=== PATIENT | male | born 1945 | race Caucasian/White ===

== ENCOUNTER 2017-09-09 14:59 | Emergency (ER) | payer OTHER ==
[~2017-09-09] VITALS: Ht 177.8 cm; Wt 107.4 kg
[2017-09-09 15:11] VITALS: TEMP 36.7; Ht 177.8 cm; Wt 107.4 kg
--- NOTE | 2017-09-09 15:28 | EMERGENCY ROOM VISIT NOTE ---
History Report prepared by Brie: Rochelle Linton Under the Supervision of: Dr. Herbert Person M.D. First contact with patient: 15:12 Chief Complaint: CARDIAC ASSESSMENT Stated Complaint: IRREGULAR HEART BEAT History of Present Illness The patient is a 72 year old male who presents to the Emergency Room with complaints of persistent Afib. The patient went to his PCP for a check-up today and they did an EKG and noticed he was in Afib. They don't know how long this has been happening because the patient does not feel it. The patient denies chest pain, racing or skipping heartbeat, or shortness of breath. 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 He notes he was on Coumadin for a blood clot in his leg. He recently came off Coumadin in April. The swelling in his legs had gone down since his last cortisone shot. Source of History: patient Onset: uncertain Position: other (irregular heart beat) Timing: other (persistent) Associated Symptoms: No chest pain, No SOB Note: Denies feeling a racing or skipping heart beat. Review of Systems See HPI for pertinent positives & negatives. A total of 10 systems reviewed and were otherwise negative. Past Medical & Surgical Hypertension, blood clots in left leg. Old medical records were reviewed. Nurse's notes were reviewed and I agree with. Family History Diabetes mellitus FH: heart disease FHx: cancer Hypertension Social History Drug Use: none Current/Historical Medications Scheduled Ascorbic Acid (Vitamin C), 1,000 MG PO QAM Aspirin (Aspirin Ec), 81 MG PO QAM Atorvastatin (Lipitor), 10 MG PO QAM Felodipine (Felodipine ER), 5 MG PO QAM Fish Oil (Clayton-3), 1 CAP PO QAM Lisinopril/Hctz (Zestoretic 20MG/12.5MG), 1 TAB PO QAM Multiple Vitamin (Multivitamin), 1 TAB PO QAM Allergies Coded Allergies: No Known Allergies (Unverified , 09/09/17) Physical Exam Vital Signs Date Time Temp Pulse Resp B/P (MAP) Pulse Ox O2 Delivery O2 Flow Rate FiO2 09/09/17 17:50 75 17 135/96 97 09/09/17 17:05 83 09/09/17 15:58 95 Room Air 09/09/17 15:57 84 16 121/79 95 Room Air 09/09/17 15:25 89 09/09/17 15:11 36.7 92 20 123/82 96 Room Air Physical Exam General: Non-ill appearing middle aged male in no acute distress. No complaints at present. HEENT: Normal cephalic atraumatic. Pupils are equal round and reactive to light. Extraocular movements are intact. Oropharynx is pink with moist mucous membranes. No swelling of the mouth lips or tongue. Neck: Supple with a midline trachea. No meningeal signs or stiffness, no JVD or bruits. No Stridor. Chest: Clear to auscultation bilaterally. No wheezes or rhonchi. No increased work of breathing. Heart: Irregularly irregular. Non-tachycardic Abdomen: Soft nontender, nondistended without rebound guarding or rigidity. Extremities: lower extremity bilateral compression hose without significant pain or edema. Spine/Back. Non tender to palpation. No CVA tenderness Skin: Good turgor without rashes. Neurologic exam: Cranial nerves two through 12 are intact. Motor and sensation are intact and symmetrical throughout. Medical Decision & Procedures ER Provider Diagnostic Interpretation: Radiology results as stated below per my review and radiologist interpretation: SINGLE VIEW CHEST CLINICAL HISTORY: Atypical chest pain. FINDINGS: An AP, portable, upright chest radiograph is obtained. No prior studies are available for comparison at the time of dictation. The examination is degraded by portable technique and patient rotation. The heart is enlarged. The pulmonary vasculature is noncongested. Moderate interstitial thickening is nonspecific and likely chronic. No airspace consolidation or pleural effusion is identified. No pneumothorax is seen. The skeletal structures are osteopenic. The bony thorax is grossly intact. IMPRESSION: Cardiomegaly with no acute cardiopulmonary abnormality. Electronically signed by: Justyn Patel M.D. 09/09/2017 3:37 PM Dictated Date/Time: 09/09/2017 3:36 PM Laboratory Results 09/09/17 15:30 Red Blood Count 5.20, Mean Corpuscular Volume 90.8, Mean Corpuscular Hemoglobin 32.3, Mean Corpuscular Hemoglobin Concent 35.6, Mean Platelet Volume 9.6, Neutrophils (%) (Auto) 60.2, Lymphocytes (%) (Auto) 30.8, Monocytes (%) (Auto) 7.6, Eosinophils (%) (Auto) 1.2, Basophils (%) (Auto) 0.1, Neutrophils # (Auto) 4.13, Lymphocytes # (Auto) 2.11, Monocytes # (Auto) 0.52, Eosinophils # (Auto) 0.08, Basophils # (Auto) 0.01 09/09/17 15:30 Test 09/09/17 15:30 White Blood Count 6.86 K/uL (4.8-10.8) Red Blood Count 5.20 M/uL (4.7-6.1) Hemoglobin 16.8 g/dL (14.0-18.0) Hematocrit 47.2 % (42-52) Mean Corpuscular Volume 90.8 fL (80-100) Mean Corpuscular Hemoglobin 32.3 pg (25-34) Mean Corpuscular Hemoglobin Concent 35.6 g/dl (32-36) Platelet Count 186 K/uL (130-400) Mean Platelet Volume 9.6 fL (7.4-10.4) Neutrophils (%) (Auto) 60.2 % Lymphocytes (%) (Auto) 30.8 % Monocytes (%) (Auto) 7.6 % Eosinophils (%) (Auto) 1.2 % Basophils (%) (Auto) 0.1 % Neutrophils # (Auto) 4.13 K/uL (1.4-6.5) Lymphocytes # (Auto) 2.11 K/uL (1.2-3.4) Monocytes # (Auto) 0.52 K/uL (0.11-0.59) Eosinophils # (Auto) 0.08 K/uL (0-0.5) Basophils # (Auto) 0.01 K/uL (0-0.2) RDW Standard Deviation 44.1 fL (36.4-46.3) RDW Coefficient of Variation 13.3 % (11.5-14.5) Immature Granulocyte % (Auto) 0.1 % Immature Granulocyte # (Auto) 0.01 K/uL (0.00-0.02) Prothrombin Time 12.5 SECONDS (9.0-12.0) Prothromb Time International Ratio 1.2 (0.9-1.1) Activated Partial Thromboplast Time 23.0 SECONDS (21.0-31.0) Partial Thromboplastin Ratio 0.9 Anion Gap 6.0 mmol/L (3-11) Est Creatinine Clear Calc Drug Dose 69.8 ml/min Estimated GFR () 73.0 Estimated GFR (Non- 63.0 BUN/Creatinine Ratio 15.1 (10-20) Calcium Level 9.2 mg/dl (8.5-10.1) Total Bilirubin 1.1 mg/dl (0.2-1) Direct Bilirubin 0.3 mg/dl (0-0.2) Aspartate Amino Transf (AST/SGOT) 38 U/L (15-37) Alanine Aminotransferase (ALT/SGPT) 68 U/L (12-78) Alkaline Phosphatase 93 U/L (45-117) Total Creatine Kinase 231 U/L (39-308) Creatine Kinase MB 2.7 ng/ml (0.5-3.6) Creatine Kinase MB Ratio 1.2 (0-3.0) Troponin I < 0.015 ng/ml (0-0.045) Total Protein 7.9 gm/dl (6.4-8.2) Albumin 4.1 gm/dl (3.4-5.0) Lipase 106 U/L (73-393) Thyroid Stimulating Hormone (TSH) 1.160 uIu/ml (0.300-4.500) Laboratory studies as stated above per my review. ECG Per My Interpretation Indication: other (irregular heart beat) Rate (beats per minute): 83 Rhythm: atrial fibrillation Findings: no acute ischemic change Comparison ECG Date: compared to EKG done in [facility] earlier today Change: no significant change ED Course 1512: Past medical records reviewed. The patient was evaluated in room A11B, and a complete history and physical examination were performed. 1555: I reevaluated the patient and he is resting comfortably. 1705: I reevaluated the patient and he is asymptomatic. 1735: Upon reevaluation, the patient is resting comfortably. I discussed the results and treatment plan with him. He verbalized agreement of the treatment plan. The patient is ready for discharge. Medical Decision Differentials include, but are not limited to; Afib, cardiac disease, valvular heart disease, thyroid disease, electrolyte or metabolic abnormality. This patient comes in as described above. He was placed in room A 11. Sent over from his doctor's office after it was noted that he was in rate controlled atrial fibrillation. He was there just for a checkup and has been completely asymptomatic. He does not feel his heart beating irregularly. He has had no palpitations shortness of breath or chest pain lately. He has no thyroid disease, lung disease, or valvular heart disease known. He looks well on exam and is stable vital signs. Her EKG here shows no ischemic changes and it is rate controlled and I also reviewed the EKG from the office. IV access established multiple blood testing was obtained. He was reassessed frequently. There are elevation of his cardiac enzymes. He has no acute electrolyte or metabolic abnormalities. Chest x-ray is unremarkable as there is no evidence of acute CHF. There is no evidence of thyroid disease. I did discuss the case with Dr. Lew and he will have his office follow-up with the patient tomorrow and get him in for some anticoagulation likely at the anticoagulation clinic. The patient is scheduled to have his knee injected tomorrow at 8:00 which I told him after discussing it with Dr. Lew, who agrees that the patient can still have this done and they can start him on anticoagulation later in the afternoon and have cardiology follow-up. the patient is happy with this plan and again is asymptomatic and was discharged home with close follow-up with cardiology Medication Reconcilliation Current Medication List: was personally reviewed by me Blood Pressure Screening Patient's blood pressure: Normal blood pressure Impression Primary Impression: New onset atrial fibrillation Scribe Attestation The scribe's documentation has been prepared under my direction and personally reviewed by me in its entirety. I confirm that the note above accurately reflects all work, treatment, procedures, and medical decision making performed by me. Departure Information Dispostion Home / Self-Care Referrals No Doctor, Assigned (PCP) Patient Instructions [facility] Additional Instructions Rest. Drink plenty of fluids. Return if: Chest pain, shortness of breath, heart racing, lightheadedness or dizziness, feeling of passing out, any new problems or concerns Dr. Lew's office will call you tomorrow and arrange for you to be started on anticoagulation and arrange for further follow
--- NOTE | 2017-09-09 15:38 | DIAGNOSTIC IMAGING REPORT ---
SINGLE VIEW CHEST CLINICAL HISTORY: Atypical chest pain. FINDINGS: An AP, portable, upright chest radiograph is obtained. No prior studies are available for comparison at the time of dictation. The examination is degraded by portable technique and patient rotation. The heart is enlarged. The pulmonary vasculature is noncongested. Moderate interstitial thickening is nonspecific and likely chronic. No airspace consolidation or pleural effusion is identified. No pneumothorax is seen. The skeletal structures are osteopenic. The bony thorax is grossly intact. IMPRESSION: Cardiomegaly with no acute cardiopulmonary abnormality. Electronically signed by: Justyn Patel M.D. 09/09/2017 3:37 PM Dictated Date/Time: 09/09/2017 3:36 PM
[2017-09-09 15:40] LABS: BASO % 0.1 %; BASO ABS # 0.01 K/uL (0-0.2); EOS % 1.2 %; EOS ABS # 0.08 K/uL (0-0.5); HEMATOCRIT 47.2 % (42-52); HEMOGLOBIN 16.8 g/dL (14.0-18.0); IG# 0.01 K/uL (0.00-0.02); LYMPH % 30.8 %; LYMPH ABS # 2.11 K/uL (1.2-3.4); MEAN CELL VOLUME 90.8 fL (80-100); MEAN CORPUSCULAR HEMOGLOBIN 32.3 pg (25-34); MEAN CORPUSCULAR HGB CONC 35.6 g/dl (32-36); MEAN PLATELET VOLUME 9.6 fL (7.4-10.4); MONO % 7.6 %; MONO ABS # 0.52 K/uL (0.11-0.59); NEUT % 60.2 %; NEUT ABS # 4.13 K/uL (1.4-6.5); PLATELET COUNT 186 K/uL (130-400); RED CELL DISTRIBUTION WIDTH CV 13.3 % (11.5-14.5); RED CELL DISTRIBUTION WIDTH SD 44.1 fL (36.4-46.3); WHITE BLOOD COUNT 6.86 K/uL (4.8-10.8)
[2017-09-09] MEDS ORDERED: LISI-787 PO (15:42)
[2017-09-09] MEDS ORDERED: ASPI81TA28 PO (15:42)
[2017-09-09] MEDS ORDERED: ASCO10003 PO (15:42)
[2017-09-09] MEDS ORDERED: OMEG10007 PO (15:42)
[2017-09-09] MEDS ORDERED: PLN5 PO (15:42)
[2017-09-09] MEDS ORDERED: MULTTAB58 PO (15:42)
[2017-09-09] MEDS ORDERED: ATOR10TA82 PO (15:43)
[2017-09-09 15:52] LABS: INR 1.2 (0.9-1.1)
[2017-09-09 16:01] LABS: CALCIUM 9.2 mg/dl (8.5-10.1); CREATININE 1.14 mg/dl (0.60-1.40); POTASSIUM 3.7 mmol/L (3.5-5.1)
[2017-09-09 16:14] LABS: ALBUMIN 4.1 gm/dl (3.4-5.0); ALKALINE PHOSPHATASE 93 U/L (45-117); ALT/SGPT 68 U/L (12-78); AST/SGOT 38 U/L (15-37); CKMB 2.7 ng/ml (0.5-3.6); LIPASE 106 U/L (73-393); TOTAL PROTEIN 7.9 gm/dl (6.4-8.2)
[2017-09-09 17:50] VITALS: BP 135/96; PULSE 75; O2SAT 97
== END 2017-09-09 17:52 | disposition home or self-care (01) ==
LOC: C.EDB 15:02 → C.EDA 17:52
DX: I48.91 Unspecified atrial fibrillation (principal); R79.89 Other specified abnormal findings of blood chemistry; I10 Essential (primary) hypertension; Z79.82 Long term (current) use of aspirin

== ENCOUNTER 2022-07-07 12:16 | Inpatient (IN) ==
[2022-07-07] MEDS ORDERED: SODIUM CHLORIDE 0.9% 1000ML 1,000 ML IV STA (12:34)
[2022-07-07] MEDS ORDERED: methylPREDNISolone 125 MG/2 ML VIAL IV STA (12:34)
[2022-07-07] MEDS ORDERED: ALBUT/IPRATROP 3MG/0.5MG NEB 3 ML VIAL NEB STA (12:34)
[2022-07-07] MEDS ORDERED: SODIUM CHLORIDE 0.65% NA SOLN 45 ML (OCEAN) ONE (12:34)
[2022-07-07] MEDS ORDERED: guaiFENesin 600 MG TABCR PO STA (12:34)
[2022-07-07 12:55] LABS: Hematocrit (blood only) 52.6 % (42.0-52.0); Hemoglobin 18.8 g/dl (14.0-18.0); Mean Corpuscular Hemoglobin 32.6 pg (25.0-34.0); Mean Corpuscular Hgb Conc 35.7 g/dL (32.0-36.0); Mean Corpuscular Volume 91.3 fL (80.0-100.0); Mean Platelet Volume 10.4 fL (9.4-12.4); Platelet Count 141 K/uL (130-400); RDW Coefficient of Variation 12.1 % (11.5-14.5); RDW Standard Deviation 40.8 fL (36.4-46.3); Red Blood Count 5.76 M/uL (4.70-6.10); White Blood Count 4.62 K/ul (4.8-10.8)
[2022-07-07 13:10] LABS: Albumin Globulin Ratio 1.1 (0.9-2); Albumin Level 4.4 gm/dl (3.4-5.0); BUN Creatinine Ratio 14.8 (10-20); Bilirubin,Total 1.7 mg/dl (0.2-1.0); Calcium 9.7 mg/dl (8.5-10.1); Creatinine Clr Calc Pharmacy 41.2 ml/min; Est GFR (Non-African American) 34.6 ml/min; Magnesium 1.9 mg/dl (1.7-2.4); Potassium 3.7 mmol/L (3.5-5.1); Total Protein 8.4 gm/dl (6.0-8.3)
[2022-07-07 13:14] LABS: Troponin I High Sensitivity 30.5 pg/ml (0-20)
[2022-07-07 13:32] LABS: Basophils # (auto) 0.01 K/uL (0-0.2); Basophils % (auto) 0.2 %; Eosinophils # (auto) 0.04 K/uL (0-0.50); Eosinophils % (auto) 0.9 %; Immature Granulocytes # (auto) 0.02 K/uL (0.01-0.20); Immature Granulocytes % (auto) 0.4 %; Lymphocytes # (auto) 1.27 K/uL (1.2-3.4); Lymphocytes % (auto) 27.5 %; Monocytes # (auto) 0.56 K/uL (0.11-0.59); Monocytes % (auto) 12.1 %; Neutrophils # (auto) 2.72 K/uL (1.40-6.50); Neutrophils % (auto) 58.9 %
--- NOTE | 2022-07-07 13:33 | XRay Report ---
XR chest 1V portable HISTORY: Cough. dizziness COMPARISON: Chest 09/09/2017. FINDINGS: No pneumothorax. No pleural effusions. The cardiac silhouette remains mildly enlarged. No f ocal lung consolidations to suggest pneumonia. No evidence for pulmonary edema. Degenerative changes within the shoulders again noted. IMPRESSION: Stable mild cardiomegaly. Otherwise, no acute process within the chest. ACT 112: Negative or not required by law. Electronically signed by: Fede Lozada M.D. 07/07/2022 1:32 PM
--- NOTE | 2022-07-07 14:04 | CT Scan Report ---
CT SCAN OF THE ABDOMEN AND PELVIS WITHOUT IV CONTRAST CLINICAL HISTORY: Hypotension. Acute renal insufficiency. COMPARISON STUDY: No priors. TECHNIQUE: CT scan of the abdomen and pelvis is performed from the lung bases to the proximal femora. Images are reviewed in the axial, sagittal, and coronal planes. IV contrast was not administered for this examination. A dose lowering technique was utilized adhering to the principles of ALARA. CT DOSE: 1202.63 mGy.cm FINDINGS: Lung bases: The heart is enlarged and without pericardial effusion. There are coronary artery calcifi cations. There is a small hiatal hernia. Patchy groundglass consolidation is seen throughout the righ t lower lobe. The left lung base is clear. No pleural effusion is identified. Liver: The unenhanced liver is top normal in size measuring 17.5 cm in length. The liver demonstrates diffusely diminished attenuation indicating severe steatosis. Fatty sparing is seen adjacent to the gallbladder fossa. There is no intrahepatic biliary ductal dilatation. Gallbladder: Unremarkable. Spleen: Normal in size and attenuation. Pancreas: Unremarkable. Adrenal glands: Unremarkable. Kidneys: The unenhanced kidneys are normal in size and without hydronephrosis. There are at least 2 n onobstructing right renal calculi which measure up to 3 mm. A 5 mm nonobstructing calculus is seen in the left kidney. No ureteral stone is identified. A 1.8 cm cyst is noted on the left. A circumaortic left renal vein is incidentally noted. Abdominal vasculature: The abdominal aorta is normal in course and caliber noting moderate to advance d atherosclerotic calcification. Bowel: There is rectosigmoid fecal retention and moderate constipation. No bowel obstruction is seen. There is [id number] colonic diverticulosis without CT evidence of acute diverticulitis. The ap pendix is well-visualized and normal. Peritoneum: There is no intraperitoneal free air or abdominal ascites. There is a fat-containing umbi lical hernia. Lymphadenopathy: None. Pelvic viscera: The prostate gland is enlarged and heterogeneous noting median lobe hypertrophy. The bladder wall is thickened and trabeculated indicating chronic outlet obstruction. There are bilateral fat-containing inguinal hernias. Skeletal structures: The skeletal structures are osteopenic. No lytic or blastic lesions are seen. Th ere is mild to moderate lumbosacral spondylosis. Degenerative change is also seen in the sacroiliac j oints and pubic symphysis. IMPRESSION: 1. Patchy ground glass consolidation is seen in the right lower lobe. Correlate clinically for eviden ce of an infectious/inflammatory pneumonitis. 2. No acute infectious or inflammatory findings are identified in the abdomen or pelvis. 3. Bilateral nephrolithiasis. 4. Severe hepatic steatosis. 5. Prostatomegaly with evidence of chronic bladder outlet obstruction. 6. Colonic diverticulosis without CT evidence of acute diverticulitis. 7. Additional findings as above. ACT 112: Negative or not required by law. Electronically signed by: Justyn Patel M.D. 07/07/2022 2:02 PM
[2022-07-07 14:27] LABS: INR 1.7 (0.9-1.1); Prothrombin Time 17.7 Seconds (9.0-12.0)
[2022-07-07 14:33] LABS: Adenovirus PCR Not Detected (NotDetected); Bordetella parapertussis PCR Not Detected (NotDetected); Bordetella pertussis PCR Not Detected (NotDetected); Chlamydia pneumoniae PCR Not Detected (NotDetected); Coronavirus 229E PCR Not Detected (NotDetected); Coronavirus CoV-2 (COVID19)PCR Not Detected (NotDetected); Coronavirus HKU1 PCR Not Detected (NotDetected); Coronavirus NL63 PCR Not Detected (NotDetected); Coronavirus OC43PCR Not Detected (NotDetected); Human Metapneumovirus PCR Not Detected (NotDetected); Influenza A PCR Not Detected (NotDetected); Influenza B PCR Not Detected (NotDetected); Mycoplasma pneumoniae PCR Not Detected (NotDetected); Parainfluenza Virus 1 PCR Not Detected (NotDetected); Parainfluenza Virus 2 PCR Not Detected (NotDetected); Parainfluenza Virus 3 PCR Not Detected (NotDetected); Parainfluenza Virus 4 PCR Not Detected (NotDetected); Respiratory Syncytial VirusPCR Not Detected (NotDetected); Rhinovirus/Enterovirus PCR Not Detected (NotDetected)
[2022-07-07 14:38] LABS: Bilirubin Direct 0.6 mg/dl (0-0.2)
--- NOTE | 2022-07-07 14:44 | Emergency Department Note ---
Impression & Plan RLL pneumonia, Hypotension, ANGIE (acute kidney injury), Persistent atrial fibrillation ED Provider Note NAME: NISA FLORES AGE: 77 SEX: M ARRIVES VIA: Ambulance INFORMANT: Patient ED PROVIDER(S): Papi Negron MD CHIEF COMPLAINT: Dizziness, hypotension, cough, referred. PLAN: Disposition: Admit MEDICAL DECISION MAKING: The patient is a pleasant 77-year-old gentleman with a past medical history of hypertension, hyperlipidemia, atrial fibrillation on warfarin who presents to the emergency department referred from urgent care for evaluation of near syncope and hypotension in the setting of being treated last week for a right ear infection with Augmentin. With subsequent cough and congestion developing since then. He denies chest pain or shortness of breath. He reports decreased oral intake due to upset stomach but denies any vomiting or diarrhea. The patient received 500 cc of IV fluids, 50 of Benadryl and 1 DuoNeb in route prior to arrival with improvement in symptoms and blood pressure. On arrival the patient is fatigued appearing but no acute distress, afebrile with stable vital signs with O2 saturation in the low 90s on room air. He becky ears clinically dry. Lungs with wheezes and rhonchi bilateral lung handy. EKG without overt acute ischemia. CXR negative for acute cardiopulmonary process. WBC 4.6, nonspecific. H/H 18.8/52.6 consistent with the patient's clinically dry appearance. Creatinine 1.8 increased from prior value in 2018. Bicarbonate is within normal limits. LFTs mildly elevated from 2018 but nonspecific. High-sensitivity troponin 30.5, nonspecific. Lipase is not elevated. Respiratory viral panel/BioFire was negative. CT of the abdomen pelvis was performed and did not demonstrate acute intra-abdominal process however does show right basilar consolidation which is suspicious for pneumonia given the patient's respiratory symptoms. Given the patient's acute renal insufficiency and pneumonia reasonable proceed with admission. CTX and doxycycline ordered for treatment following blood cultures. Initially treated with IV fluid hydration with 1L NSS with caution given acute renal insufficiency as well as Solu-Medrol and DuoNeb for bronchospasm. Case was discussed with Negro Doyle PAC with Dr. Lo, Negro hospitalist, who will evaluate the patient for admission. Triage Nursing notes reviewed and agree them. Prior/outside medical records reviewed Vital Signs: reviewed Differential diagnosis: Benign positional vertigo, dehydration, hypovolemia, anemia, tumor, infection, hypoglycemia, electrolyte abnormalities, cardiac sources, intracerebral event, toxicologic, neurologic, as well as other pathologies. ER treatment provided: See below. Diagnostics interpreted by me: ECG: Atrial fibrillation with PVCs, 97 bpm, T wave abnormality, no overt ST elevation, QTc 497, QRS 92. Cardiac Monitoring: An order for continuous cardiac monitoring was placed and demonstrated Atrial fibrillation with PVCs, 97 bpm Laboratory studies: See below Imaging studies: See below Consultation(s): Negro Doyle PAC with Negro Foley hospitalist. HPI: The patient is a pleasant 77-year-old gentleman with a past medical history of hypertension, hyperlipidemia, atrial fibrillation on warfarin who presents emergency department referred from urgent care for evaluation of near syncope and hypotension in the setting of being treated last week for a right ear infection with subsequent cough and congestion developing since then. He denies chest pain or shortness of breath. He reports decreased oral intake due to upset stomach but denies any vomiting or diarrhea. The patient received 500 cc of IV fluids, 50 of Benadryl and 1 DuoNeb in route prior to arrival with improvement in symptoms and blood pressure. ROS: See above HPI for pertinent positives & negatives. A total of 10 systems reviewed and were otherwise negative. VITALS:See Below PHYSICAL EXAMINATION: GENERAL: Awake, alert, ill-appearing, in no distress HENT: Normocephalic, atraumatic. Oropharynx with dry mucous membranes and otherwise unremarkable. EYES: Normal conjunctiva. Sclera non-icteric. NECK: Supple. No nuchal rigidity. FROM. No JVD. RESPIRATORY: Wheezes and rhonchi bilateral lung handy. CARDIAC: Regular rate, normal rhythm. Extremities warm and well perfused. Pulses equal. ABDOMEN: Soft, non-distended. No tenderness to palpation. No rebound or guarding. No masses. RECTAL: Deferred. MUSCULOSKELETAL: Chest examination reveals no tenderness. The back is symmetrical on inspection without obvious abnormality. There is no CVA tenderness to palpation. No joint edema. LOWER EXTREMITIES: Calves are equal size bilaterally and non-tender. No edema. No discoloration. NEURO: Normal sensorium. No sensory or motor deficits noted. SKIN: No rash or jaundice noted. Papi Negron MD Past Med/Surg History Medical History (Updated 07/08/22 @ 02:49 by Papi Negron MD) Aortic root dilatation Dyslipidemia History of adenomatous polyp of colon History of DVT (deep vein thrombosis) Hypertension Left elbow pain Persistent atrial fibrillation Type 2 diabetes mellitus Surgical History History of cataract removal with insertion of prosthetic lens Family History Other Cancer Diabetes Heart disease Stroke Social History Smoking Status: Never smoker Tobacco Type: Smokeless Tobacco (Dip or Chew) Second Hand Exposure: No; Do You Dip or Chew Tobacco: Yes; Tobacco Cessation Education Requested by Patient: No Hx Alcohol Use: Yes Alcohol type: hard liquor Hx Substance Use: No Preferred Language: Turkish [employer] Assistant Required: No Beliefs That Will Affect Care: None Current Living Situation: Spouse Other Information That Helps Us Care for You: No Feels Safe at Home: Yes Safety Concerns: Feels Safe At This Time Allergies Allergies Allergy/AdvReac Type Severity Reaction Status Date / Time No Known Allergies Allergy Verified 07/07/22 15:17 Home Meds Home Medications Medication Instructions Recorded Confirmed warfarin 5 mg tablet 5 mg PO [id number]@1600 11/27/19 07/07/22 amoxicillin 875 mg-potassium 1 tab PO BID 07/07/22 07/07/22 clavulanate 125 mg tablet ascorbic acid (vitamin C) 1,000 mg 1 g PO QAM 07/07/22 07/07/22 tablet (Vitamin C) atorvastatin 10 mg tablet 10 mg PO QAM 07/07/22 07/07/22 ciprofloxacin 0.3 %-dexamethasone 5 drp OTR DIRECTED 07/07/22 07/07/22 0.1 % ear drops,suspension diclofenac sodium 1 % topical gel 4 g topical DIRECTED PRN Pain 07/07/22 07/07/22 felodipine 2.5 mg tablet,extended 2.5 mg PO QAM 07/07/22 07/07/22 release 24 hr lisinopril 20 1 tab PO QAM 07/07/22 07/07/22 mg-hydrochlorothiazide 12.5 mg tablet metformin 500 mg tablet,extended 500 mg PO QAM 07/07/22 07/07/22 release 24 hr metoprolol succinate 50 mg 50 mg PO DAILY 07/07/22 07/07/22 tablet,extended release 24 hr multivitamin 1 tab PO QAM 07/07/22 07/07/22 semaglutide 0.25 mg or 0.5 mg (2 0.25 mg subcut WK 07/07/22 07/07/22 mg/1.5 mL) subcutaneous pen injector (Ozempic) warfarin 5 mg tablet 2.5 mg PO SUTH@1600 07/07/22 07/07/22 Results & Data (ED) Vital Signs Vital Signs - 24 hr 07/07/22 12:25 07/07/22 12:25 07/07/22 12:39 Temperature 36.8 C Temperature Source Oral Pulse Rate 92 H Pulse Rate from SpO2 Sensor Pulse Rhythm Irregular Pulse Strength Normal Respiratory Rate 16 Respiratory Effort / Characteristics Non-Labored Respiratory Depth Normal Respiratory Pattern Regular Blood Pressure 107/79 Blood Pressure Mean 88 Blood Pressure Position Lying Pulse Oximetry 98 92 Oxygen Delivery Method Room Air Room Air Sepsis Recent Fever Within 48 Hours No Sepsis New/Unexplained Change in Mental Status No Sepsis Action Taken by Nursing No Action Required 07/07/22 13:00 07/07/22 13:30 07/07/22 13:52 Temperature Temperature Source Pulse Rate 94 H 89 80 Pulse Rate from SpO2 Sensor 88 75 Pulse Rhythm Pulse Strength Respiratory Rate 26 H 23 27 H Respiratory Effort / Characteristics Respiratory Depth Respiratory Pattern Blood Pressure 112/73 Blood Pressure Mean 86 Blood Pressure Position Pulse Oximetry 93 98 95 Oxygen Delivery Method Sepsis Recent Fever Within 48 Hours Sepsis New/Unexplained Change in Mental Status Sepsis Action Taken by Nursing 07/07/22 14:00 07/07/22 14:10 07/07/22 14:20 Temperature Temperature Source Pulse Rate 81 86 87 Pulse Rate from SpO2 Sensor 91 H 87 81 Pulse Rhythm Pulse Strength Respiratory Rate 29 H 15 32 H Respiratory Effort / Characteristics Respiratory Depth Respiratory Pattern Blood Pressure Blood Pressure Mean Blood Pressure Position Pulse Oximetry 91 94 91 Oxygen Delivery Method Sepsis Recent Fever Within 48 Hours Sepsis New/Unexplained Change in Mental Status Sepsis Action Taken by Nursing 07/07/22 14:30 07/07/22 14:40 07/07/22 14:50 Temperature Temperature Source Pulse Rate 83 82 86 Pulse Rate from SpO2 Sensor 86 86 89 Pulse Rhythm Pulse Strength Respiratory Rate 31 H 27 H 27 H Respiratory Effort / Characteristics Respiratory Depth Respiratory Pattern Blood Pressure Blood Pressure Mean Blood Pressure Position Pulse Oximetry 93 94 91 Oxygen Delivery Method Sepsis Recent Fever Within 48 Hours Sepsis New/Unexplained Change in Mental Status Sepsis Action Taken by Nursing Laboratory Data Attestation: I reviewed the patient's lab results. 07/07/22 12:15 07/07/22 12:15 Lab Results 07/07/22 07/07/22 07/07/22 Range/Units 12:15 12:15 12:15 WBC 4.62 L (4.8-10.8) K/ul RBC 5.76 (4.70-6.10) M/uL Hgb 18.8 H (14.0-18.0) g/dl Hct 52.6 H (42.0-52.0) % MCV 91.3 (80.0-100.0) fL MCH 32.6 (25.0-34.0) pg MCHC 35.7 (32.0-36.0) g/dL RDW Std Deviation 40.8 (36.4-46.3) fL RDW Coeff of Blake 12.1 (11.5-14.5) % Plt Count 141 (130-400) K/uL MPV 10.4 (9.4-12.4) fL Immature Gran % (Auto) 0.4 % Neut % (Auto) 58.9 % Lymph % (Auto) 27.5 % Cross % (Auto) 12.1 % Eos % (Auto) 0.9 % Baso % (Auto) 0.2 % Neut # (Auto) 2.72 (1.40-6.50) K/uL Lymph # (Auto) 1.27 (1.2-3.4) K/uL Cross # (Auto) 0.56 (0.11-0.59) K/uL Eos # (Auto) 0.04 (0-0.50) K/uL Baso # (Auto) 0.01 (0-0.2) K/uL Immature Gran # (Auto) 0.02 (0.01-0.20) K/uL PT 17.7 H (9.0-12.0) Seconds INR 1.7 H (0.9-1.1) Sodium 137 (136-145) mmol/L Potassium 3.7 (3.5-5.1) mmol/L Chloride 97 L (98-107) mmol/L Carbon Dioxide 25 (21-32) mmol/L Anion Gap 15 H (3-11) BUN 27 H (6-23) mg/dl Creatinine 1.82 H (0.6-1.4) mg/dl Est Cr Clr Drug Dosing 41.2 ml/min Est GFR ( Amer) 40.0 ml/min Est GFR (Non-Af Amer) 34.6 ml/min BUN/Creatinine Ratio 14.8 (10-20) Glucose 160 H (70-99(Fasting)) mg/dl Calcium 9.7 (8.5-10.1) mg/dl Phosphorus 4.0 (2.5-4.9) mg/dl Magnesium 1.9 (1.7-2.4) mg/dl Total Bilirubin 1.7 H (0.2-1.0) mg/dl Direct Bilirubin 0.6 H (0-0.2) mg/dl AST 78 H (13-39) U/L ALT 69 H (7-52) U/L Alkaline Phosphatase 95 (34-104) U/L Troponin I High Sens 30.5 H (0-20) pg/ml Total Protein 8.4 H (6.0-8.3) gm/dl Albumin 4.4 (3.4-5.0) gm/dl Globulin 4.0 (2.5-4.0) gm/dl Albumin/Globulin Ratio 1.1 (0.9-2) Lipase 63 (11-82) U/L Procalcitonin (0-0.5) ng/ml Adenovirus (PCR) (NotDetected) B. pertussis DNA (PCR) (NotDetected) B.parapertussis DNA PCR (NotDetected) C. pneumoniae DNA (PCR) (NotDetected) Coronavirus OC43 (PCR) (NotDetected) Coronavirus HKU1 (PCR) (NotDetected) Coronavirus 229E (PCR) (NotDetected) SARS-CoV-2 (PCR) (NotDetected) Coronavirus NL63 (PCR) (NotDetected) Human Metapneumovir PCR (NotDetected) Influenza Type A (PCR) (NotDetected) Influenza Type B (PCR) (NotDetected) M. pneumoniae (PCR) (NotDetected) Parainfluenza 1 (PCR) (NotDetected) Parainfluenza 2 (PCR) (NotDetected) Parainfluenza 3 (PCR) (NotDetected) Parainfluenza 4 (PCR) (NotDetected) RSV (PCR) (NotDetected) Entero/Rhino (PCR) (NotDetected) 07/07/22 07/07/22 07/07/22 Range/Units 12:15 13:15 14:20 WBC (4.8-10.8) K/ul RBC (4.70-6.10) M/uL Hgb (14.0-18.0) g/dl Hct (42.0-52.0) % MCV (80.0-100.0) fL MCH (25.0-34.0) pg MCHC (32.0-36.0) g/dL RDW Std Deviation (36.4-46.3) fL RDW Coeff of Blake (11.5-14.5) % Plt Count (130-400) K/uL MPV (9.4-12.4) fL Immature Gran % (Auto) % Neut % (Auto) % Lymph % (Auto) % Cross % (Auto) % Eos % (Auto) % Baso % (Auto) % Neut # (Auto) (1.40-6.50) K/uL Lymph # (Auto) (1.2-3.4) K/uL Cross # (Auto) (0.11-0.59) K/uL Eos # (Auto) (0-0.50) K/uL Baso # (Auto) (0-0.2) K/uL Immature Gran # (Auto) (0.01-0.20) K/uL PT (9.0-12.0) Seconds INR (0.9-1.1) Sodium (136-145) mmol/L Potassium (3.5-5.1) mmol/L Chloride (98-107) mmol/L Carbon Dioxide (21-32) mmol/L Anion Gap (3-11) BUN (6-23) mg/dl Creatinine (0.6-1.4) mg/dl Est Cr Clr Drug Dosing ml/min Est GFR ( Amer) ml/min Est GFR (Non-Af Amer) ml/min BUN/Creatinine Ratio (10-20) Glucose 141 H (70-99(Fasting)) mg/dl Calcium (8.5-10.1) mg/dl Phosphorus (2.5-4.9) mg/dl Magnesium (1.7-2.4) mg/dl Total Bilirubin (0.2-1.0) mg/dl Direct Bilirubin (0-0.2) mg/dl AST (13-39) U/L ALT (7-52) U/L Alkaline Phosphatase (34-104) U/L Troponin I High Sens (0-20) pg/ml Total Protein (6.0-8.3) gm/dl Albumin (3.4-5.0) gm/dl Globulin (2.5-4.0) gm/dl Albumin/Globulin Ratio (0.9-2) Lipase (11-82) U/L Procalcitonin 0.18 (0-0.5) ng/ml Adenovirus (PCR) Not Detected (NotDetected) B. pertussis DNA (PCR) Not Detected (NotDetected) B.parapertussis DNA PCR Not Detected (NotDetected) C. pneumoniae DNA (PCR) Not Detected (NotDetected) Coronavirus OC43 (PCR) Not Detected (NotDetected) Coronavirus HKU1 (PCR) Not Detected (NotDetected) Coronavirus 229E (PCR) Not Detected (NotDetected) SARS-CoV-2 (PCR) Not Detected (NotDetected) Coronavirus NL63 (PCR) Not Detected (NotDetected) Human Metapneumovir PCR Not Detected (NotDetected) Influenza Type A (PCR) Not Detected (NotDetected) Influenza Type B (PCR) Not Detected (NotDetected) M. pneumoniae (PCR) Not Detected (NotDetected) Parainfluenza 1 (PCR) Not Detected (NotDetected) Parainfluenza 2 (PCR) Not Detected (NotDetected) Parainfluenza 3 (PCR) Not Detected (NotDetected) Parainfluenza 4 (PCR) Not Detected (NotDetected) RSV (PCR) Not Detected (NotDetected) Entero/Rhino (PCR) Not Detected (NotDetected) Administered Medications Ciprofloxacin/Dexamethasone (Cipro 0.3%/Dexamethasone 0.1% Otic Susp 7.5ml) 4 drops OTR BID [facility] Stop: 08/06/22 20:59 Last Admin: 07/07/22 21:45 Dose: 4 drops Documented By: BROOKE Guaifenesin/Codeine Phosphate (Guaifenesin/Codeine 100mg/10mg 5ml Udc) 5 ml PO Q6H PRN PRN Reason: Cough Stop: 08/06/22 17:37 Last Admin: 07/07/22 22:00 Dose: 5 ml Documented By: BROOKE Sodium Chloride (Nss 1000ml) 1,000 mls @ 100 mls/hr IV .Q10H [facility] Stop: 07/08/22 03:39 Last Admin: 07/07/22 18:57 Dose: 100 mls/hr Documented By: YAMIL Insulin Aspart (Insulin Aspart Per Unit) 0 units SC ACHS [facility] Stop: 08/06/22 20:59 Last Admin: 07/07/22 21:42 Dose: 2 units Documented By: BROOKE Co-signed By: BETTY Triamcinolone Acetonide (Triamcinolone Acet 0.1% Cr 15 Gm Tube) 1 appln EXT BID [facility] Stop: 07/14/22 20:59 Last Admin: 07/07/22 21:45 Dose: 1 appln Documented By: BROOKE Discontinued Medications Albuterol (Albut/Ipratrop 3mg/0.5mg Neb 3 Ml Vial) 3 ml NEB NOW STA; Protocol Stop: 07/07/22 12:35 Last Admin: 07/07/22 13:12 Dose: 3 ml Documented By: RUTH Guaifenesin (Guaifenesin 600 Mg Tabcr) 600 mg PO NOW STA Stop: 07/07/22 12:35 Last Admin: 07/07/22 13:11 Dose: 600 mg Documented By: RUHT Sodium Chloride (Nss 1000ml) 1,000 mls @ 999 mls/hr IV .Q1H1M STA Stop: 07/07/22 13:34 Last Infusion: 07/07/22 15:00 Dose: 0 mls/hr Documented By: Admin: 07/07/22 13:12 Dose: 999 mls/hr Documented By: RUTH Ceftriaxone Sodium (Rocephin) 2,000 mg in 70 mls @ 140 mls/hr IV NOW STA Stop: 07/07/22 15:42 Last Infusion: 07/07/22 17:35 Dose: 0 mls/hr Documented By: Admin: 07/07/22 17:02 Dose: 140 mls/hr Documented By: RUTH Doxycycline Hyclate 100 mg/ (Dextrose) 110 mls @ 50 mls/hr IV NOW STA Stop: 07/07/22 17:24 Last Infusion: 07/08/22 00:29 Dose: 0 mls/hr Documented By: Admin: 07/07/22 15:48 Dose: 50 mls/hr Documented By: RUTH Doxycycline Hyclate 100 mg/ (Dextrose) 110 mls @ 50 mls/hr IV Q12H [facility] Stop: 07/14/22 18:14 Last Admin: 07/08/22 01:55 Dose: Not Given Documented By: BROOKE Loratadine (Loratadine 10 Mg Tab) 10 mg PO NOW ONE Stop: 07/07/22 17:41 Last Admin: 07/07/22 21:46 Dose: 10 mg Documented By: BROOKE Methylprednisolone (Methylprednisolone 125 Mg/2 Ml Vial) 125 mg IV NOW STA Stop: 07/07/22 12:35 Last Admin: 07/07/22 13:12 Dose: 125 mg Documented By: RUTH Sodium Chloride (Sodium Chloride 0.65% Na Soln 45 Ml ([place])) 2 sprays NA NOW ONE Stop: 07/07/22 12:35 Last Admin: 07/07/22 13:12 Dose: 2 sprays Documented By: RUTH Imaging Data Radiologist's Impression: Chest X-Ray 07/07/22 12:34 XR chest 1V portable HISTORY: Cough. dizziness COMPARISON: Chest 09/09/2017. FINDINGS: No pneumothorax. No pleural effusions. The cardiac silhouette remains mildly enlarged. No focal lung consolidations to suggest pneumonia. No evidence for pulmonary edema. Degenerative changes within the shoulders again noted. IMPRESSION: Stable mild cardiomegaly. Otherwise, no acute process within the chest. ACT 112: Negative or not required by law. Electronically signed by: Fede Lozada M.D. 07/07/2022 1:32 PM Abdomen/Pelvis CT 07/07/22 13:32 CT SCAN OF THE ABDOMEN AND PELVIS WITHOUT IV CONTRAST CLINICAL HISTORY: Hypotension. Acute renal insufficiency. COMPARISON STUDY: No priors. TECHNIQUE: CT scan of the abdomen and pelvis is performed from the lung bases to the proximal femora. Images are reviewed in the axial, sagittal, and coronal planes. IV contrast was not administered for this examination. A dose lowering technique was utilized adhering to the principles of ALARA. CT DOSE: 1202.63 mGy.cm FINDINGS: Lung bases: The heart is enlarged and without pericardial effusion. There are coronary artery calcifications. There is a small hiatal hernia. Patchy groundglass consolidation is seen throughout the right lower lobe. The left lung base is clear. No pleural effusion is identified. Liver: The unenhanced liver is top normal in size measuring 17.5 cm in length. The liver demonstrates diffusely diminished attenuation indicating severe steatosis. Fatty sparing is seen adjacent to the gallbladder fossa. There is no intrahepatic biliary ductal dilatation. Gallbladder: Unremarkable. Spleen: Normal in size and attenuation. Pancreas: Unremarkable. Adrenal glands: Unremarkable. Kidneys: The unenhanced kidneys are normal in size and without hydronephrosis. There are at least 2 nonobstructing right renal calculi which measure up to 3 mm. A 5 mm nonobstructing calculus is seen in the left kidney. No ureteral stone is identified. A 1.8 cm cyst is noted on the left. A circumaortic left renal vein is incidentally noted. Abdominal vasculature: The abdominal aorta is normal in course and caliber noting moderate to advanced atherosclerotic calcification. Bowel: There is rectosigmoid fecal retention and moderate constipation. No bowel obstruction is seen. There is [id number] colonic diverticulosis without CT evidence of acute diverticulitis. The appendix is well-visualized and normal. Peritoneum: There is no intraperitoneal free air or abdominal ascites. There is a fat-containing umbilical hernia. Lymphadenopathy: None. Pelvic viscera: The prostate gland is enlarged and heterogeneous noting median lobe hypertrophy. The bladder wall is thickened and trabeculated indicating chronic outlet obstruction. There are bilateral fat-containing inguinal hernias. Skeletal structures: The skeletal structures are osteopenic. No lytic or blastic lesions are seen. There is mild to moderate lumbosacral spondylosis. Degenerative change is also seen in the sacroiliac joints and pubic symphysis. IMPRESSION: 1. Patchy ground glass consolidation is seen in the right lower lobe. Correlate clinically for evidence of an infectious/inflammatory pneumonitis. 2. No acute infectious or inflammatory findings are identified in the abdomen or pelvis. 3. Bilateral nephrolithiasis. 4. Severe hepatic steatosis. 5. Prostatomegaly with evidence of chronic bladder outlet obstruction. 6. Colonic diverticulosis without CT evidence of acute diverticulitis. 7. Additional findings as above. ACT 112: Negative or not required by law. Electronically signed by: Justyn Patel M.D. 07/07/2022 2:02 PM Discharge Plan Visit Data Chief Complaint: Hypotension Stated Complaint: HYPOTENSION ED Provider: Papi Negron Discharge Problem: RLL pneumonia, Hypotension, ANIGE (acute kidney injury), Persistent atrial fibrillation Patient Disposition: Admitted As Inpatient Discharge Instructions Interventions: ED Discharge Assessment Last Done: 07/07/22 18:21
--- NOTE | 2022-07-07 15:01 | History & Physical Report ---
Date of Service July 07, 2022 Assessment & Plan (1) Hypotension: (2) RLL pneumonia: (3) Ear infection: (4) History of DVT (deep vein thrombosis): (5) ANGIE (acute kidney injury): (6) Persistent atrial fibrillation: (7) Hypertension: (8) Dyslipidemia: (9) Type 2 diabetes mellitus: Plan This is a 77-year-old male with PMH of type 2 diabetes, dyslipidemia, pretension, persistent atrial fibrillation and history of DVT on anticoagulation as well as recent ear infection who presents with continued cough and congestion was found to have right lower lobe pneumonia and acute kidney injury. Sepsis RLL pneumonia In setting of recent viral infection (resp panel today is negative), recent R ear infection on day 7/10 Augmentin - continue Ciprodex ear drops Meeting sepsis criteria with hypotension, HR 90s and RLL on CXR although non- toxic appearance and dehydration likely driving hypotension. Procalcitonin wnl BP improved to 127/74 after 1.5 L NSS CXR, CT abd/pelvis reviewed - patchy ground glass consolidation is seen in the right lower lobe. No acute infectious or inflammatory findings are identified in the abdomen or pelvis. Blood cultures obtained, urine cx ordered Started on empiric Rocephin and doxycycline in ED - consider broadening to cefepime/doxy if no improvement Possible drug reaction to Augmentin given maculopapular rash although ? 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 Lo. Please see addendum. History of Present Illness Chief Complaint: Malaise, cough, congestion Primary Care Provider: Bo Adame, DO This is a 77-year-old male with PMH of type 2 diabetes, dyslipidemia, pretension, persistent atrial fibrillation and history of DVT on anticoagulation as well as recent ear infection who presents with continued cough and congestion. Was seen by ENT on 06/30/2021 for check of his right ear. Had a tube placed for middle ear effusion in May 2021. Had tube removed at appointment a few weeks ago due to it lying on his tympanic membrane which was suspected to be causing a foreign body reaction. Treated with Ciprodex (day 12/16) and Augmentin (day 12/07). Ear pain has resolved but with what she believes was flu last week and patient started to have symptoms on Wednesday including chills, dry cough, congestion and malaise. Also developed rash which he first noted today on his chest and stomach that is since spread up to neck, down arms, down groin and into lower extremities. States rash is itchy but not painful. Endorses decreased appetite and decreased water intake. Worth lightheaded today with standing, prompting visit to urgent care. Was notably hypotensive at urgent care with BP of 80/66 as well as lightheadedness. EMS was called and patient directed to [facility] ED for further evaluation. Denies any eliz fevers. No visual changes, chest pain, shortness of breath, wheezing, nausea, vomiting, abdominal pain, dysuria, diarrhea or constipation. Does have ongoing urinary symptoms such as increased frequency and incomplete emptying. Allergies Allergy/AdvReac Type Severity Reaction Status Date / Time No Known Allergies Allergy Verified 07/07/22 15:17 Home Medications Medication Instructions Recorded Confirmed Type warfarin 5 mg tablet 5 mg PO MATHEUS@1600 11/27/19 07/07/22 History amoxicillin 875 mg-potassium 1 tab PO BID 07/07/22 07/07/22 History clavulanate 125 mg tablet ascorbic acid (vitamin C) 1,000 mg 1 g PO QAM 07/07/22 07/07/22 History tablet (Vitamin C) atorvastatin 10 mg tablet 10 mg PO QAM 07/07/22 07/07/22 History ciprofloxacin 0.3 %-dexamethasone 5 drp OTR DIRECTED 07/07/22 07/07/22 History 0.1 % ear drops,suspension diclofenac sodium 1 % topical gel 4 g topical DIRECTED PRN Pain 07/07/22 07/07/22 History felodipine 2.5 mg tablet,extended 2.5 mg PO QAM 07/07/22 07/07/22 History release 24 hr lisinopril 20 1 tab PO QAM 07/07/22 07/07/22 History mg-hydrochlorothiazide 12.5 mg tablet metformin 500 mg tablet,extended 500 mg PO QAM 07/07/22 07/07/22 History release 24 hr metoprolol succinate 50 mg 50 mg PO DAILY 07/07/22 07/07/22 History tablet,extended release 24 hr multivitamin 1 tab PO QAM 07/07/22 07/07/22 History semaglutide 0.25 mg or 0.5 mg (2 0.25 mg subcut WK 07/07/22 07/07/22 History mg/1.5 mL) subcutaneous pen injector (Ozempic) warfarin 5 mg tablet 2.5 mg PO SUTH@1600 07/07/22 07/07/22 History Past Med/Surg History Medical History (Updated 07/08/22 @ 02:49 by Papi Negron MD) Aortic root dilatation Dyslipidemia History of adenomatous polyp of colon History of DVT (deep vein thrombosis) Hypertension Left elbow pain Persistent atrial fibrillation Type 2 diabetes mellitus Surgical History History of cataract removal with insertion of prosthetic lens Family History Other Cancer Diabetes Heart disease Stroke Social History Smoking Status: Never smoker Tobacco Type: Smokeless Tobacco (Dip or Chew) Second Hand Exposure: No; Do You Dip or Chew Tobacco: Yes; Tobacco Cessation Education Requested by Patient: No Hx Alcohol Use: Yes Alcohol type: hard liquor Hx Substance Use: No Preferred Language: Japanese Communication Ability: Effective Pharmacy Messenger Required: No Beliefs That Will Affect Care: None Current Living Situation: Spouse Other Information That Helps Us Care for You: No Feels Safe at Home: Yes Safety Concerns: Feels Safe At This Time Assistive Devices: None Review of Systems Review of Systems: At least ten systems reviewed and negative except as noted in the HPI. Physical Exam Physical Exam: General Appearance: WD/WN, vitals as above, NAD, sitting up in bed, obese, pleasant, conversing easily Head: normocephalic, atraumatic Eyes: normal inspection, PERRL, conjunctivae normal, anicteric sclerae ENT: external ear and nose normal, oropharynx dry mucous membranes, + R without erythema or bulging of TM Neck: normal visual inspection, trachea midline, no thyromegaly Respiratory: normal respiratory effort, decreased breath sounds bilaterally at bases, no wheeze, rales, rhonchi. No accessory muscle use Cardiovascular: irregular rate & rhythm, no murmur appreciated, normal per ipheral pulses, no BLE edema. Vessels: no JVD Chest: normal inspection of chest Abdomen/GI: normal bowel sounds, soft, nontender, no hepatosplenomegaly Extremities/Musculoskeletal: no cyanosis or clubbing, extremities motor strength 5/5 Neurologic: PERRL, EOMI, accommodation nl, no face palsy, no dysarthria, CN's II-XI intact bilaterally and moves all extremities Psychiatric: A+Ox3, euthymic affect Skin: normal color, warm/dry. + Diffuse maculopapular rash noted on chest, back, trunk, groin and bilateral thighs, nontender, no drainage Results & Data Results & Data ([facility]) Vital Signs (Past 12 Hours) Vital Signs Temp Pulse Resp BP Pulse Ox O2 Del Method 07/07/22 12:39 92 07/07/22 12:25 Room Air 07/07/22 12:25 36.8 C 92 H 16 107/79 98 Room Air Laboratory Results Short CBC 07/07/22 Range/Units 12:15 WBC 4.62 L (4.8-10.8) K/ul Hgb 18.8 H (14.0-18.0) g/dl Hct 52.6 H (42.0-52.0) % Plt Count 141 (130-400) K/uL [facility] 07/07/22 07/07/22 12:15 14:20 Sodium 137 Potassium 3.7 Chloride 97 L Carbon Dioxide 25 BUN 27 H Creatinine 1.82 H Glucose 160 H 141 H Calcium 9.7 Liver Function 07/07/22 Range/Units 12:15 Total Bilirubin 1.7 H (0.2-1.0) mg/dl Direct Bilirubin 0.6 H (0-0.2) mg/dl AST 78 H (13-39) U/L ALT 69 H (7-52) U/L Alkaline Phosphatase 95 (34-104) U/L Albumin 4.4 (3.4-5.0) gm/dl Diagnostic Findings Chest X-Ray 07/07/22 12:34 XR chest 1V portable HISTORY: Cough. dizziness COMPARISON: Chest 09/09/2017. FINDINGS: No pneumothorax. No pleural effusions. The cardiac silhouette remains mildly enlarged. No focal lung consolidations to suggest pneumonia. No evidence for pulmonary edema. Degenerative changes within the shoulders again noted. IMPRESSION: Stable mild cardiomegaly. Otherwise, no acute process within the chest. ACT 112: Negative or not required by law. Electronically signed by: Fede Lozada M.D. 07/07/2022 1:32 PM Abdomen/Pelvis CT 07/07/22 13:32 CT SCAN OF THE ABDOMEN AND PELVIS WITHOUT IV CONTRAST CLINICAL HISTORY: Hypotension. Acute renal insufficiency. COMPARISON STUDY: No priors. TECHNIQUE: CT scan of the abdomen and pelvis is performed from the lung bases to the proximal femora. Images are reviewed in the axial, sagittal, and coronal planes. IV contrast was not administered for this examination. A dose lowering technique was utilized adhering to the principles of ALARA. CT DOSE: 1202.63 mGy.cm FINDINGS: Lung bases: The heart is enlarged and without pericardial effusion. There are coronary artery calcifications. There is a small hiatal hernia. Patchy groundgl ass consolidation is seen throughout the right lower lobe. The left lung base is clear. No pleural effusion is identified. Liver: The unenhanced liver is top normal in size measuring 17.5 cm in length. The liver demonstrates diffusely diminished attenuation indicating severe steatosis. Fatty sparing is seen adjacent to the gallbladder fossa. There is no intrahepatic biliary ductal dilatation. Gallbladder: Unremarkable. Spleen: Normal in size and attenuation. Pancreas: Unremarkable. Adrenal glands: Unremarkable. Kidneys: The unenhanced kidneys are normal in size and without hydronephrosis. There are at least 2 nonobstructing right renal calculi which measure up to 3 mm. A 5 mm nonobstructing calculus is seen in the left kidney. No ureteral stone is identified. A 1.8 cm cyst is noted on the left. A circumaortic left renal vein is incidentally noted. Abdominal vasculature: The abdominal aorta is normal in course and caliber noting moderate to advanced atherosclerotic calcification. Bowel: There is rectosigmoid fecal retention and moderate constipation. No bowel obstruction is seen. There is [id number] colonic diverticulosis without CT evidence of acute diverticulitis. The appendix is well-visualized and normal. Peritoneum: There is no intraperitoneal free air or abdominal ascites. There is a fat-containing umbilical hernia. Lymphadenopathy: None. Pelvic viscera: The prostate gland is enlarged and heterogeneous noting median lobe hypertrophy. The bladder wall is thickened and trabeculated indicating chronic outlet obstruction. There are bilateral fat-containing inguinal hernias. Skeletal structures: The skeletal structures are osteopenic. No lytic or blastic lesions are seen. There is mild to moderate lumbosacral spondylosis. Degenerative change is also seen in the sacroiliac joints and pubic symphysis. IMPRESSION: 1. Patchy ground glass consolidation is seen in the right lower lobe. Correlate clinically for evidence of an infectious/inflammatory pneumonitis. 2. No acute infectious or inflammatory findings are identified in the abdomen or pelvis. 3. Bilateral nephrolithiasis. 4. Severe hepatic steatosis. 5. Prostatomegaly with evidence of chronic bladder outlet obstruction. 6. Colonic diverticulosis without CT evidence of acute diverticulitis. 7. Additional findings as above. ACT 112: Negative or not required by law. Electronically signed by: Justyn Patel M.D. 07/07/2022 2:02 PM ECG Additional Comments: EKG independently reviewed showing atrial fibrillation at 97 bpm with PVC, T wave abnormality. No ST elevation Code Status & VTE Plan VTE Prophylaxis Plan VTE Prophylaxis will be ordered: Yes Supervising Physician Co-Signing Physician Notes I have seen and examined the patient and have discussed the case with the provider above. I agree with the assessment and plan as stated with the following exceptions. ATTENDING ADDENDUM: The patient is a 77-year-old man who presents with referral from urgent care after being seen for a worsening cough. was sick at home and approximately week 1 week ago he came down with respiratory symptoms. He describes the last 4 to 5 days being very sedentary and with little p.o. intake. He reports even drinking water would cause him to feel nauseous. He was given Augmentin and Ciprodex by Dr. Gillette, ENT after he developed some drainage and discomfort in the right ear recently. He is s/p tube placement for middle ear effusion in Jun 21. Today he presents with a widespread erythematous raised rash consistent w ith a drug reaction. During the assessment at urgent care this morning he reported lightheadedness and was reported to be hypotensive with a blood pressure of 80/66. The blood pressure was repeated and was 78/55. He is on diuretic therapy and takes Coumadin for atrial fibrillation. Today he denies any fevers or chills. He is still coughing. He is fatigued. His rash is itchy and he received Solu-Medrol 125 today. He is a non-smoker. On physical exam he is an obese man in no acute distress who appears younger than stated age. ENT evaluation reveals dry oral mucosa, no sinus tenderness to palpation in the frontal or maxillary areas, no lymphadenopathy in the submandibular or cervical areas. Tympanic membranes are clear with no evidence of effusion. His left pinna is bluish in hue and he reports laying on his left ear in a very sedentary state for the past few days. He is on Coumadin with a subtherapeutic INR today of 1.7. Lungs are clear to auscultation bilaterally with decreased breath sounds at the bases bilaterally. Cardiac exam reveals an irregular rhythm with a normal rate, S1-S2 heard with no evidence of murmurs. He has a diffuse erythematous raised rash that is worse in his bilateral inguinal region but is present on every extremity and on his anterior trunk. Work-up includes a CBC with a low white blood cell count of 4.6 K, H&H of 18.8/52.6, platelet count of 141. INR 1.7 as noted above. Chemistry reflects dehydration with acute renal failure including a BUN of 27 and a creatinine of 1.82. Baseline creatinine is 1.1. Glucose is within normal limits. There is mild LFT elevation present and he has hepatic steatosis seen on imaging. A CT of the abdomen pelvis without contrast was performed revealing patchy groundglass consolidation in the right lower lobe, bilateral nephrolithiasis, severe hepatic steatosis, prostatomegaly with evidence of chronic bladder outlet obstruction and colonic diverticulosis. Skeletal structures are noted to be ost eopenic. Procalcitonin is normal at 0.18 and a viral panel was checked via nasal swab and was negative. 1. Community acquired pneumonia-viral vs bacterial with hypoxia 2. Acute renal failure likely pre-renal azotemia in setting of poor PO intake and diuretic use 3. allergic rash 2/2 drug reaction. Cont with Rocephin/doxycycline started in the ER. Sputum and blood cultures pending. Pulmonary toilet efforts as needed and encourage early ambulation. Rehydration efforts with IVF. Dehydrated appearance and evidence of dehydration is present on labs with polycythemia, and elevated BUN/creat. For his drug reaction, will stop PCN based drugs. Started on Rocephin and we can continue this for now but may consider switching to FQ if he is not improving or getting worse. He was given solumedrol in the ER, and I discussed the idea of a prednisone course with him. Currently, he doesn't appear bothered by the rash much so would avoid that unless he becomes more symptomatic. We can utilize high potency steroids cream on troublesome spots BID for one week. Will schedule a nonsedating antihistamine, loratadine. Benadryl PRN. I discussed the plan with his and son who were at bedside and discussed the plan with Corinna uJnior PA-C. Wally, DO
[2022-07-07] MEDS ORDERED: cefTRIAXone SODIUM 2,000 MG/70 ML BAG IV STA (15:13)
[2022-07-07] MEDS ORDERED: DOXYCYCLINE HYCLATE 100 MG in DEXTROSE 5% 100 ML IV STA (15:13)
--- NOTE | 2022-07-07 16:04 | Electrocardiogram Report ---
Test Reason : Blood Pressure : / mmHG Vent. Rate : 097 BPM Atrial Rate : 340 BPM P-R Int : 000 ms QRS Dur : 092 ms QT Int : 392 ms P-R-T Axes : 000 000 -23 degrees QTc Int : 497 ms Atrial fibrillation with premature ventricular or aberrantly conducted complexes Diffuse Minor Nonspecific T wave abnormality Abnormal ECG When compared with ECG of 09-SEP-2017 15:15, Nonspecific T wave abnormality now present Confirmed by Alexandro Burks ([id number]) on 07/07/2022 4:04:05 PM Referred By: ED Confirmed By:Alexandro Burks
--- NOTE | 2022-07-07 16:33 | Communication Note ---
Date of Service: July 07, 2022 ATTENDING ADDENDUM: The patient is a 77-year-old man who presents with referral from urgent care after being seen for a worsening cough. was sick at home and approximately week 1 week ago he came down with respiratory symptoms. He describes the last 4 to 5 days being very sedentary and with little p.o. intake. He reports even drinking water would cause him to feel nauseous. He was given Augmentin and Ciprodex by Dr. Gillette, ENT after he developed some drainage and discomfort in the right ear recently. He is s/p tube placement for middle ear effusion in Jun 21. Today he presents with a widespread erythematous raised rash consistent with a drug reaction. During the assessment at urgent care this morning he reported lightheadedness and was reported to be hypotensive with a blood pressure of 80/66. The blood pressure was repeated and was 78/55. He is on diuretic therapy and takes Coumadin for atrial fibrillation. Today he denies any fevers or chills. He is still coughing. He is fatigued. His rash is itchy and he received Solu-Medrol 125 today. He is a non-smoker. On physical exam he is an obese man in no acute distress who appears younger than stated age. ENT evaluation reveals dry oral mucosa, no sinus tenderness to palpation in the frontal or maxillary areas, no lymphadenopathy in the submandibular or cervical areas. Tympanic membranes are clear with no evidence of effusion. His left pinna is bluish in hue and he reports laying on his left ear in a very sedentary state for the past few days. He is on Coumadin with a subtherapeutic INR today of 1.7. Lungs are clear to auscultation bilaterally with decreased breath sounds at the bases bilaterally. Cardiac exam reveals an irregular rhythm with a normal rate, S1-S2 heard with no evidence of murmurs. He has a diffuse erythematous raised rash that is worse in his bilateral inguinal region but is present on every extremity and on his anterior trunk. Work-up includes a CBC with a low white blood cell count of 4.6 K, H&H of 18.8/52.6, platelet count of 141. INR 1.7 as noted above. Chemistry reflects dehydration with acute renal failure including a BUN of 27 and a creatinine of 1.82. Baseline creatinine is 1.1. Glucose is within normal limits. There is mild LFT elevation present and he has hepatic steatosis seen on imaging. A CT of the abdomen pelvis without contrast was performed revealing patchy groundglass consolidation in the right lower lobe, bilateral nephrolithiasis, severe hepatic steatosis, prostatomegaly with evidence of chronic bladder outlet obstruction and colonic diverticulosis. Skeletal structures are noted to be osteopenic. Procalcitonin is normal at 0.18 and a viral panel was checked via nasal swab and was negative. 1. Community acquired pneumonia-viral vs bacterial with hypoxia 2. Acute renal failure likely pre-renal azotemia in setting of poor PO intake and diuretic use 3. allergic rash 2/2 drug reaction. Cont with Rocephin/doxycycline started in the ER. Sputum and blood cultures pending. Pulmonary toilet efforts as needed and encourage early ambulation. Rehydration efforts with IVF. Dehydrated appearance and evidence of dehydration is present on labs with polycythemia, and elevated BUN/creat. For his drug reaction, will stop PCN based drugs. Started on Rocephin and we can continue this for now but may consider switching to FQ if he is not improving or getting worse. He was given solumedrol in the ER, and I discussed the idea of a prednisone course with him. Currently, he doesn't appear bothered by the rash much so would avoid that unless he becomes more symptomatic. We can utilize high potency steroids cream on troublesome spots BID for one week. Will schedule a nonsedating antihistamine, loratadine. Benadryl PRN. I discussed the plan with his and son who were at bedside and discussed the plan with Corinna Junior PA-C. Wally,
[2022-07-07] MEDS ORDERED: DICLOFENAC SOD 1% GEL 100 GM TUBE EXT PRN (17:40)
[2022-07-07] MEDS ORDERED: GLUCOSE 10 TAB/TUBE PO PRN (17:40)
[2022-07-07] MEDS ORDERED: DEXTROSE 50% 50 ML SYRINGE IV PRN (17:40)
[2022-07-07] MEDS ORDERED: LORATADINE 10 MG TAB PO ONE (17:40)
[2022-07-07] MEDS ORDERED: POLYETHYLENE (MIRALAX) 17 GM PACK PO PRN (17:40)
[2022-07-07] MEDS ORDERED: GLUCAGON FOR INJ 1 MG VIAL SQ PRN (17:40)
[2022-07-07] MEDS ORDERED: ACETAMINOPHEN 325 MG TAB PO PRN (17:40)
[2022-07-07] MEDS ORDERED: GLUCOSE 40% GEL 15 GM TUBE PO PRN (17:40)
[2022-07-07] MEDS ORDERED: CARBOHYDRATES FOR HYPOGLYCEMIA PO PRN (17:40)
[2022-07-07] MEDS ORDERED: CIPRO 0.3%/DEXAMETHASONE 0.1% OTIC SUSP 7.5ML OTR SCH (17:40)
[2022-07-07] MEDS ORDERED: SODIUM CHLORIDE 0.9% 1000ML 1,000 ML IV SCH (17:40)
[2022-07-07] MEDS ORDERED: ONDANSETRON INJ 2 MG/ML 2 ML VIAL IV PRN (17:40)
[2022-07-07] MEDS ORDERED: DOXYCYCLINE HYCLATE 100 MG in DEXTROSE 5% 100 ML IV SCH (18:15)
[2022-07-07] MEDS: INSULIN ASPART PER UNIT SC SCH (21:42)
[2022-07-07] MEDS: CIPRO 0.3%/DEXAMETHASONE 0.1% OTIC SUSP 7.5ML OTR SCH (21:45)
[2022-07-07] MEDS: TRIAMCINOLONE ACET 0.1% CR 15 GM TUBE EXT SCH (21:45)
[2022-07-07] MEDS: guaiFENesin/CODEINE 100MG/10MG 5ML UDC PO PRN (22:00)
[2022-07-08] MEDS: DOXYCYCLINE HYCLATE 100 MG in DEXTROSE 5% 100 ML IV SCH ×2 (04:42→15:55)
[2022-07-08] MEDS: INSULIN ASPART PER UNIT SC SCH ×4 (08:11→20:55)
[2022-07-08] MEDS: METOPROLOL SUCC 50MG EXT REL TAB PO SCH (08:18)
[2022-07-08] MEDS: CIPRO 0.3%/DEXAMETHASONE 0.1% OTIC SUSP 7.5ML OTR SCH ×2 (08:18→20:55)
[2022-07-08] MEDS: TRIAMCINOLONE ACET 0.1% CR 15 GM TUBE EXT SCH ×2 (08:18→20:55)
[2022-07-08] MEDS: MULTIVITAMIN TAB PO SCH (08:19)
[2022-07-08] MEDS: ASCORBIC ACID 500 MG TAB PO SCH (08:19)
[2022-07-08] MEDS: ATORVASTATIN 10 MG TAB PO SCH (08:19)
[2022-07-08] MEDS: FELODIPINE 2.5 MG TABCR PO SCH (08:19)
[2022-07-08] MEDS: cefTRIAXone SODIUM 2,000 MG in DEXTROSE 5% 50 ML IV SCH (08:22)
[2022-07-08 08:47] LABS: Hematocrit (blood only) 47.5 % (42.0-52.0); Hemoglobin 16.9 g/dl (14.0-18.0); Mean Corpuscular Hemoglobin 32.4 pg (25.0-34.0); Mean Corpuscular Hgb Conc 35.6 g/dL (32.0-36.0); Mean Corpuscular Volume 91.2 fL (80.0-100.0); Mean Platelet Volume 10.2 fL (9.4-12.4); Platelet Count 138 K/uL (130-400); RDW Coefficient of Variation 11.9 % (11.5-14.5); Red Blood Count 5.21 M/uL (4.70-6.10); White Blood Count 4.59 K/ul (4.8-10.8)
[2022-07-08 09:06] LABS: INR 1.9 (0.9-1.1); Prothrombin Time 19.1 Seconds (9.0-12.0)
[2022-07-08] MEDS: LORATADINE 10 MG TAB PO SCH (09:37)
[2022-07-08 10:04] LABS: Appearance Urine Clear (Clear); Bacteria Urine Automated Negative (Negative); Bilirubin Urine Negative (Negative); Blood Urine Negative (Negative); Color Urine Dark Yellow; Glucose Urine UA Negative (Negative); Ketones Urine 1+ (Negative); Leukocyte Esterase Urine Negative (Negative); Nitrite Urine Negative (Negative); Protein Urine 1+ (Negative); RBC Urine Automated 0-4 /hpf (0-4); Specific Gravity Urine 1.021 (1.000-1.030); Urobilinogen Urine Negative (Negative); pH Urine 5.5 (4.5-7.5)
[2022-07-08 11:42] LABS: Albumin Globulin Ratio 1.2 (0.9-2); Albumin Level 4.2 gm/dl (3.4-5.0); BUN Creatinine Ratio 25.2 (10-20); Bilirubin,Total 0.8 mg/dl (0.2-1.0); Calcium 9.7 mg/dl (8.5-10.1); Creatinine Clr Calc Pharmacy 68.1 ml/min; Est GFR (African American) 72.8 ml/min; Est GFR (Non-African American) 62.8 ml/min; Globulin 3.5 gm/dl (2.5-4.0); Potassium 3.9 mmol/L (3.5-5.1); Total Protein 7.7 gm/dl (6.0-8.3)
--- NOTE | 2022-07-08 14:21 | Hospitalist Progress Note ---
Date of Service July 08, 2022 Assessment & Plan (1) Hypotension: (2) RLL pneumonia: (3) Ear infection: (4) History of DVT (deep vein thrombosis): (5) ANGIE (acute kidney injury): (6) Persistent atrial fibrillation: (7) Hypertension: (8) Dyslipidemia: (9) Type 2 diabetes mellitus: Plan This is a 77-year-old male with PMH of type 2 diabetes, dyslipidemia, pretension, persistent atrial fibrillation and history of DVT on anticoagulation as well as recent ear infection who presents with continued cough and congestion was found to have right lower lobe pneumonia and acute kidney injury. Pneumonia Possible Community acquired pneumonia-viral vs bacterial with hypoxia Did not meet the criteria for sepsis CXR showed Stable mild cardiomegaly. Otherwise, no acute process within the chest. CT Chest showed Patchy ground glass consolidation is seen in the right lower lobe. 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 SSI while in-patient BSG AC HS Rash Diffused rash possible related to recent abx Rass started to fade away Continue monitor HTN Holding lisinopril/hctz given ANGIE, continue Toprol with hold parameters, felodipine HLD Continue statin DVT Ppx: coumadin Code status: FULL Disposition Will discharge once medically stable Admission and Anticipated Discharge Date Admission Date: July 07, 2022 Subjective Pt was seen and examined for follow up of pneumonia Lying in bed with no acute distress Pt said that he continues to have a dry cough He denies any weakness, chills and SOB Review of Systems Review of Systems: All systems reviewed & are unremarkable except as noted in Subjective Physical Exam Physical Exam: General- No acute distress Head- atraumatic Eyes- PERRL, EOMI, ENT- oropharynx clear Neck- supple, no JVD Lungs- +coarse BS Heart- regular rhythm; no murmur Abdomen- normal bowel sounds, soft, nontender Extremities- no calf tenderness Neuro- alert, oriented x 3; PERRL, EOMI; no facial palsy; no dysarthria Skin- warm & dry Results & Data Results & Data ([facility]) Vital Signs (Past 12 Hours) Vital Signs Temp Pulse Pulse Resp BP BP Pulse Ox 07/08/22 11:32 36.6 C 75 18 142/83 H 93 07/08/22 07:00 74 07/08/22 10:26 07/08/22 07:21 36.5 C 59 L 20 151/84 H 96 07/08/22 03:32 36.6 C 74 18 136/83 96 O2 Del Method O2 Flow Rate 07/08/22 11:32 Room Air 07/08/22 07:00 07/08/22 10:26 Room Air 07/08/22 07:21 Nasal Cannula 2 07/08/22 03:32 Nasal Cannula 2
[2022-07-08] MEDS ORDERED: predniSONE 20 MG TAB PO STA (14:24)
[2022-07-08] MEDS: guaiFENesin/CODEINE 100MG/10MG 5ML UDC PO PRN ×2 (15:55→22:37)
[2022-07-08] MEDS ORDERED: WARFARIN SOD 5 MG TAB PO SCH (16:00)
[2022-07-09] MEDS: DOXYCYCLINE HYCLATE 100 MG in DEXTROSE 5% 100 ML IV SCH ×2 (04:57→17:09)
[2022-07-09 07:06] LABS: INR 2.1 (0.9-1.1); Prothrombin Time 21.6 Seconds (9.0-12.0)
[2022-07-09 07:10] LABS: Hematocrit (blood only) 43.8 % (42.0-52.0); Hemoglobin 15.9 g/dl (14.0-18.0); Mean Corpuscular Hemoglobin 32.5 pg (25.0-34.0); Mean Corpuscular Hgb Conc 36.3 g/dL (32.0-36.0); Mean Corpuscular Volume 89.6 fL (80.0-100.0); Mean Platelet Volume 10.4 fL (9.4-12.4); Platelet Count 139 K/uL (130-400); RDW Coefficient of Variation 11.9 % (11.5-14.5); RDW Standard Deviation 39.3 fL (36.4-46.3); Red Blood Count 4.89 M/uL (4.70-6.10); White Blood Count 5.51 K/ul (4.8-10.8)
[2022-07-09 08:00] LABS: Albumin Globulin Ratio 1.1 (0.9-2); Albumin Level 3.6 gm/dl (3.4-5.0); BUN Creatinine Ratio 27.1 (10-20); Bilirubin,Total 0.9 mg/dl (0.2-1.0); Calcium 8.7 mg/dl (8.5-10.1); Creatinine Clr Calc Pharmacy 88.9 ml/min; Est GFR (African American) 96.1 ml/min; Est GFR (Non-African American) 82.9 ml/min; Globulin 3.2 gm/dl (2.5-4.0); Potassium 3.6 mmol/L (3.5-5.1); Total Protein 6.8 gm/dl (6.0-8.3)
[2022-07-09] MEDS: LORATADINE 10 MG TAB PO SCH (09:00)
[2022-07-09] MEDS: ASCORBIC ACID 500 MG TAB PO SCH (09:00)
[2022-07-09] MEDS: MULTIVITAMIN TAB PO SCH (09:00)
[2022-07-09] MEDS: METOPROLOL SUCC 50MG EXT REL TAB PO SCH (09:00)
[2022-07-09] MEDS: FELODIPINE 2.5 MG TABCR PO SCH (09:01)
[2022-07-09] MEDS: CIPRO 0.3%/DEXAMETHASONE 0.1% OTIC SUSP 7.5ML OTR SCH ×2 (09:01→20:45)
[2022-07-09] MEDS: ATORVASTATIN 10 MG TAB PO SCH (09:01)
[2022-07-09] MEDS: TRIAMCINOLONE ACET 0.1% CR 15 GM TUBE EXT SCH ×2 (09:02→20:45)
[2022-07-09] MEDS: INSULIN ASPART PER UNIT SC SCH ×4 (09:02→20:44)
[2022-07-09] MEDS: cefTRIAXone SODIUM 2,000 MG in DEXTROSE 5% 50 ML IV SCH (09:03)
[2022-07-09] MEDS ORDERED: predniSONE 20 MG TAB PO STA (11:10)
[2022-07-09] MEDS: guaiFENesin 200 MG TAB PO SCH ×3 (12:11→23:05)
--- NOTE | 2022-07-09 13:13 | Hospitalist Progress Note ---
Date of Service July 09, 2022 Assessment & Plan (1) Hypotension: (2) RLL pneumonia: (3) Ear infection: (4) History of DVT (deep vein thrombosis): (5) ANGIE (acute kidney injury): (6) Persistent atrial fibrillation: (7) Hypertension: (8) Dyslipidemia: (9) Type 2 diabetes mellitus: Plan This is a 77-year-old male with PMH of type 2 diabetes, dyslipidemia, pretension, persistent atrial fibrillation and history of DVT on anticoagulation as well as recent ear infection who presents with continued cough and congestion was found to have right lower lobe pneumonia and acute kidney injury. Pneumonia Possible Community acquired pneumonia-viral vs bacterial with hypoxia Did not meet the criteria for sepsis CXR showed Stable mild cardiomegaly. Otherwise, no acute process within the chest. CT Chest showed Patchy ground glass consolidation is seen in the right lower lobe. 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 while in-patient BSG AC HS Rash Diffused rash possible related to recent abx Rash continue to fade away Continue monitor HTN Holding lisinopril/hctz given ANGIE, continue Toprol with hold parameters, felodipine HLD Continue statin DVT Ppx: coumadin Code status: FULL Disposition Will discharge once medically stable Admission and Anticipated Discharge Date Admission Date: July 07, 2022 Subjective Pt was seen and examined for follow up of pneumonia Lying in bed with no acute distress Pt said that he feels better today He said that he is coughing less today I came back later to talk to his in details and answered all her questions He denies any weakness, chills and SOB Review of Systems Review of Systems: All systems reviewed & are unremarkable except as noted in Subjective Physical Exam Physical Exam: General- No acute distress Head- atraumatic Eyes- PERRL, EOMI, ENT- oropharynx clear Neck- supple, no JVD Lungs- +coarse BS Heart- regular rhythm; no murmur Abdomen- normal bowel sounds, soft, nontender Extremities- no calf tenderness Neuro- alert, oriented x 3; PERRL, EOMI; no facial palsy; no dysarthria Skin- warm & dry Results & Data Results & Data ([facility]) Vital Signs (Past 12 Hours) Vital Signs Temp Pulse Resp BP Pulse Ox O2 Del Method 07/09/22 11:37 36.6 C 94 H 18 135/81 92 Room Air 07/09/22 08:09 Room Air 07/09/22 07:49 Room Air 07/09/22 07:28 36.6 C 86 16 149/91 H 93 Room Air
[2022-07-09] MEDS ORDERED: WARFARIN SOD 2.5 MG TAB PO SCH (16:00)
[2022-07-10] MEDS: DOXYCYCLINE HYCLATE 100 MG in DEXTROSE 5% 100 ML IV SCH (05:20)
[2022-07-10] MEDS: guaiFENesin 200 MG TAB PO SCH ×2 (05:20→12:21)
[2022-07-10] MEDS: TRIAMCINOLONE ACET 0.1% CR 15 GM TUBE EXT SCH (08:07)
[2022-07-10] MEDS: ASCORBIC ACID 500 MG TAB PO SCH (08:08)
[2022-07-10] MEDS: ATORVASTATIN 10 MG TAB PO SCH (08:08)
[2022-07-10] MEDS: MULTIVITAMIN TAB PO SCH (08:08)
[2022-07-10] MEDS: FELODIPINE 2.5 MG TABCR PO SCH (08:08)
[2022-07-10] MEDS: CIPRO 0.3%/DEXAMETHASONE 0.1% OTIC SUSP 7.5ML OTR SCH (08:08)
[2022-07-10] MEDS: LORATADINE 10 MG TAB PO SCH (08:08)
[2022-07-10] MEDS: METOPROLOL SUCC 50MG EXT REL TAB PO SCH (08:08)
[2022-07-10] MEDS ORDERED: POTASSIUM CHLORIDE 10 MEQ TABCR PO STA (08:21)
[2022-07-10] MEDS: INSULIN ASPART PER UNIT SC SCH ×2 (08:21→12:07)
[2022-07-10] MEDS ORDERED: CEFDINIR 300 MG CAP PO SCH (09:00)
[2022-07-10] MEDS ORDERED: hydroCHLOROthiazide 25 MG TAB PO SCH (09:00)
[2022-07-10] MEDS ORDERED: DOXYCYCLINE HYCLATE 100 MG CAP PO SCH (09:00)
[2022-07-10 09:28] LABS: Prothrombin Time 20.8 Seconds (9.0-12.0)
[2022-07-10] MEDS ORDERED: predniSONE 20 MG TAB PO STA (10:28)
[2022-07-10] MEDS ORDERED: CIPRO 0.3%/DEXAMETHASONE 0.1% OTIC SUSP 7.5ML OTR SCH (21:00)
--- NOTE | 2022-07-17 01:14 | Discharge Summary ---
Date of Service July 10, 2022 Admission HPI Per Admitting Provider This is a 77-year-old male with PMH of type 2 diabetes, dyslipidemia, pretension, persistent atrial fibrillation and history of DVT on anticoagulation as well as recent ear infection who presents with continued cough and congestion. Was seen by ENT on 06/30/2021 for check of his right ear. Had a tube placed for middle ear effusion in May 2021. Had tube removed at appointment a few weeks ago due to it lying on his tympanic membrane which was suspected to be causing a foreign body reaction. Treated with Ciprodex (day 12/16) and Augmentin (day 12/07). Ear pain has resolved but with what she believes was flu last week and patient started to have symptoms on Wednesday including chills, dry cough, congestion and malaise. Also developed rash which he first noted today on his chest and stomach that is since spread up to neck, down arms, down groin and into lower extremities. States rash is itchy but not painful. Endorses decreased appetite and decreased water intake. [place] lightheaded today with standing, prompting visit to urgent care. Was notably hypotensive at urgent care with BP of 80/66 as well as lightheadedness. EMS was called and patient directed to [facility] ED for further evaluation. Denies any eliz fevers. No visual changes, chest pain, shortness of breath, wheezing, nausea, vomiting, abdominal pain, dysuria, diarrhea or constipation. Does have ongoing urinary symptoms such as increased frequency and incomplete emptying. Admission Exam Per Admitting Provider General Appearance:WD/WN, vitals as above, NAD, sitting up in bed, obese, pleasant, conversing easily Head: normocephalic, atraumatic Eyes:normal inspection, PERRL, conjunctivae normal, anicteric sclerae ENT: external ear and nose normal, oropharynx dry mucous membranes, + R without erythema or bulging of TM Neck: normal visual inspection, trachea midline, no thyromegaly Respiratory:normal respiratory effort, decreased breath sounds bilaterally at bases, no wheeze, rales, rhonchi. No accessory muscle use Cardiovascular: irregular rate & rhythm, no murmur appreciated, normal peripheral pulses, no BLE edema. Vessels: no JVD Chest: normal inspection of chest Abdomen/GI: normal bowel sounds, soft, nontender, no hepatosplenomegaly Extremities/Musculoskeletal: no cyanosis or clubbing, extremities motor strength 5/5 Neurologic: PERRL, EOMI, accommodation nl, no face palsy, no dysarthria, CN's II-XI intact bilaterally and moves all extremities Psychiatric:A+Ox3, euthymic affect Skin: normal color, warm/dry. + Diffuse maculopapular rash noted on chest, back, trunk, groin and bilateral thighs, nontender, no drainage Principal Diagnosis (1) Hypotension: (2) RLL pneumonia: (3) Ear infection: (4) History of DVT (deep vein thrombosis): (5) ANGIE (acute kidney injury): (6) Persistent atrial fibrillation: (7) Hypertension: (8) Dyslipidemia: (9) Type 2 diabetes mellitus: Discharge Exam General- No acute distress Head- atraumatic Eyes- PERRL, EOMI, ENT- oropharynx clear Neck- supple, no JVD Lungs- +coarse BS Heart- regular rhythm; no murmur Abdomen- normal bowel sounds, soft, nontender Extremities- no calf tenderness Neuro- alert, oriented x 3; PERRL, EOMI; no facial palsy; no dysarthria Skin- warm & dry Discharge Data Allergies Allergy/AdvReac Type Severity Reaction Status Date / Time No Known Allergies Allergy Verified 07/07/22 15:17 Consultations 07/07/22 15:12 ED Decision to Admit Stat Ordered Studies 07/07/22 13:32 CT abd pelvis wo con Stat Laboratory Results WBC 5.51 K/ul (4.8-10.8) 07/09/22 06:06 RBC 4.89 M/uL (4.70-6.10) 07/09/22 06:06 Hgb 15.9 g/dl (14.0-18.0) 07/09/22 06:06 Hct 43.8 % (42.0-52.0) 07/09/22 06:06 MCV 89.6 fL (80.0-100.0) 07/09/22 06:06 MCH 32.5 pg (25.0-34.0) 07/09/22 06:06 MCHC 36.3 g/dL (32.0-36.0) H 07/09/22 06:06 RDW Std Deviation 39.3 fL (36.4-46.3) 07/09/22 06:06 RDW Coeff of Blake 11.9 % (11.5-14.5) 07/09/22 06:06 Plt Count 139 K/uL (130-400) 07/09/22 06:06 MPV 10.4 fL (9.4-12.4) 07/09/22 06:06 Immature Gran % (Auto) 0.4 % 07/07/22 12:15 Neut % (Auto) 58.9 % 07/07/22 12:15 Lymph % (Auto) 27.5 % 07/07/22 12:15 [place] % (Auto) 12.1 % 07/07/22 12:15 Eos % (Auto) 0.9 % 07/07/22 12:15 Baso % (Auto) 0.2 % 07/07/22 12:15 Neut # (Auto) 2.72 K/uL (1.40-6.50) 07/07/22 12:15 Lymph # (Auto) 1.27 K/uL (1.2-3.4) 07/07/22 12:15 [place] # (Auto) 0.56 K/uL (0.11-0.59) 07/07/22 12:15 Eos # (Auto) 0.04 K/uL (0-0.50) 07/07/22 12:15 Baso # (Auto) 0.01 K/uL (0-0.2) 07/07/22 12:15 Immature Gran # (Auto) 0.02 K/uL (0.01-0.20) 07/07/22 12:15 PT 20.8 Seconds (9.0-12.0) H 07/10/22 08:09 INR 2.0 (0.9-1.1) H 07/10/22 08:09 Sodium 136 mmol/L (136-145) 07/09/22 06:06 Potassium 3.6 mmol/L (3.5-5.1) 07/09/22 06:06 Chloride 103 mmol/L (98-107) 07/09/22 06:06 Carbon Dioxide 26 mmol/L (21-32) 07/09/22 06:06 Anion Gap 7 (3-11) 07/09/22 06:06 BUN 23 mg/dl (6-23) 07/09/22 06:06 Creatinine 0.85 mg/dl (0.6-1.4) 07/09/22 06:06 Est Cr Clr Drug Dosing 88.9 ml/min 07/09/22 06:06 Est GFR ( Amer) 96.1 ml/min 07/09/22 06:06 Est GFR (Non-Af Amer) 82.9 ml/min 07/09/22 06:06 BUN/Creatinine Ratio 27.1 (10-20) H 07/09/22 06:06 Glucose 130 mg/dl (70-99(Fasting)) H 07/09/22 06:06 POC Glucose 108 mg/dl (70-99) H 07/10/22 11:28 Calcium 8.7 mg/dl (8.5-10.1) 07/09/22 06:06 Phosphorus 4.0 mg/dl (2.5-4.9) 07/07/22 12:15 Magnesium 1.9 mg/dl (1.7-2.4) 07/07/22 12:15 Total Bilirubin 0.9 mg/dl (0.2-1.0) 07/09/22 06:06 Direct Bilirubin 0.6 mg/dl (0-0.2) H 07/07/22 12:15 AST 68 U/L (13-39) H 07/09/22 06:06 ALT 64 U/L (7-52) H 07/09/22 06:06 Alkaline Phosphatase 70 U/L (34-104) 07/09/22 06:06 Troponin I High Sens 15.3 pg/ml (0-20) D 07/07/22 18:20 Total Protein 6.8 gm/dl (6.0-8.3) 07/09/22 06:06 Albumin 3.6 gm/dl (3.4-5.0) 07/09/22 06:06 Globulin 3.2 gm/dl (2.5-4.0) 07/09/22 06:06 Albumin/Globulin Ratio 1.1 (0.9-2) 07/09/22 06:06 Lipase 63 U/L (11-82) 07/07/22 12:15 Procalcitonin 0.18 ng/ml (0-0.5) 07/07/22 12:15 Urine Color Dark Yellow 07/08/22 09:20 Urine Appearance Clear (Clear) 07/08/22 09:20 Urine pH 5.5 (4.5-7.5) 07/08/22 09:20 Ur Specific [place] 1.021 (1.000-1.030) 07/08/22 09:20 Urine Protein 1+ (Negative) H 07/08/22 09:20 Urine Glucose (UA) Negative (Negative) 07/08/22 09:20 Urine Ketones 1+ (Negative) H 07/08/22 09:20 Urine Blood Negative (Negative) 07/08/22 09:20 Urine Nitrite Negative (Negative) 07/08/22 09:20 Urine Bilirubin Negative (Negative) 07/08/22 09:20 Urine Urobilinogen Negative (Negative) 07/08/22 09:20 Ur Leukocyte Esterase Negative (Negative) 07/08/22 09:20 Urine WBC (Auto) 1-5 /hpf (0-5) 07/08/22 09:20 Urine RBC (Auto) 0-4 /hpf (0-4) 07/08/22 09:20 U Hyaline Cast (Auto) 1-5 /lpf (0-5) 07/08/22 09:20 U Epithel Cells (Auto) 5-10 /lpf (0-5) H 07/08/22 09:20 Urine Bacteria (Auto) Negative (Negative) 07/08/22 09:20 Adenovirus (PCR) Not Detected (NotDetected) 07/07/22 13:15 B. pertussis DNA (PCR) Not Detected (NotDetected) 07/07/22 13:15 B.parapertussis DNA PCR Not Detected (NotDetected) 07/07/22 13:15 C. pneumoniae DNA (PCR) Not Detected (NotDetected) 07/07/22 13:15 Coronavirus OC43 (PCR) Not Detected (NotDetected) 07/07/22 13:15 Coronavirus HKU1 (PCR) Not Detected (NotDetected) 07/07/22 13:15 Coronavirus 229E (PCR) Not Detected (NotDetected) 07/07/22 13:15 SARS-CoV-2 (PCR) Not Detected (NotDetected) 07/07/22 13:15 Coronavirus NL63 (PCR) Not Detected (NotDetected) 07/07/22 13:15 Human Metapneumovir PCR Not Detected (NotDetected) 07/07/22 13:15 Influenza Type A (PCR) Not Detected (NotDetected) 07/07/22 13:15 Influenza Type B (PCR) Not Detected (NotDetected) 07/07/22 13:15 M. pneumoniae (PCR) Not Detected (NotDetected) 07/07/22 13:15 Parainfluenza 1 (PCR) Not Detected (NotDetected) 07/07/22 13:15 Parainfluenza 2 (PCR) Not Detected (NotDetected) 07/07/22 13:15 Parainfluenza 3 (PCR) Not Detected (NotDetected) 07/07/22 13:15 Parainfluenza 4 (PCR) Not Detected (NotDetected) 07/07/22 13:15 RSV (PCR) Not Detected (NotDetected) 07/07/22 13:15 Entero/Rhino (PCR) Not Detected (NotDetected) 07/07/22 13:15 Impressions Chest X-Ray 07/07/22 12:34 XR chest 1V portable HISTORY: Cough. dizziness COMPARISON: Chest 09/09/2017. FINDINGS: No pneumothorax. No pleural effusions. The cardiac silhouette remains mildly enlarged. No focal lung consolidations to suggest pneumonia. No evidence for pulmonary edema. Degenerative changes within the shoulders again noted. IMPRESSION: Stable mild cardiomegaly. Otherwise, no acute process within the chest. ACT 112: Negative or not required by law. Electronically signed by: Fede Lozada M.D. 07/07/2022 1:32 PM Abdomen/Pelvis CT 07/07/22 13:32 CT SCAN OF THE ABDOMEN AND PELVIS WITHOUT IV CONTRAST CLINICAL HISTORY: Hypotension. Acute renal insufficiency. COMPARISON STUDY: No priors. TECHNIQUE: CT scan of the abdomen and pelvis is performed from the lung bases to the proximal femora. Images are reviewed in the axial, sagittal, and coronal planes. IV contrast was not administered for this examination. A dose lowering technique was utilized adhering to the principles of ALARA. CT DOSE: 1202.63 mGy.cm FINDINGS: Lung bases: The heart is enlarged and without pericardial effusion. There are coronary artery calcifications. There is a small hiatal hernia. Patchy groundglass consolidation is seen throughout the right lower lobe. The left lung base is clear. No pleural effusion is identified. Liver: The unenhanced liver is top normal in size measuring 17.5 cm in length. The liver demonstrates diffusely diminished attenuation indicating severe steatosis. Fatty sparing is seen adjacent to the gallbladder fossa. There is no intrahepatic biliary ductal dilatation. Gallbladder: Unremarkable. Spleen: Normal in size and attenuation. Pancreas: Unremarkable. Adrenal glands: Unremarkable. Kidneys: The unenhanced kidneys are normal in size and without hydronephrosis. There are at least 2 nonobstructing right renal calculi which measure up to 3 mm. A 5 mm nonobstructing calculus is seen in the left kidney. No ureteral stone is identified. A 1.8 cm cyst is noted on the left. A circumaortic left renal vein is incidentally noted. Abdominal vasculature: The abdominal aorta is normal in course and caliber noting moderate to advanced atherosclerotic calcification. Bowel: There is rectosigmoid fecal retention and moderate constipation. No bowel obstruction is seen. There is [id number] colonic diverticulosis without CT evidence of acute diverticulitis. The appendix is well-visualized and normal. Peritoneum: There is no intraperitoneal free air or abdominal ascites. There is a fat-containing umbilical hernia. Lymphadenopathy: None. Pelvic viscera: The prostate gland is enlarged and heterogeneous noting median lobe hypertrophy. The bladder wall is thickened and trabeculated indicating chronic outlet obstruction. There are bilateral fat-containing inguinal hernias. Skeletal structures: The skeletal structures are osteopenic. No lytic or blastic lesions are seen. There is mild to moderate lumbosacral spondylosis. Degenerative change is also seen in the sacroiliac joints and pubic symphysis. IMPRESSION: 1. Patchy ground glass consolidation is seen in the right lower lobe. Correlate clinically for evidence of an infectious/inflammatory pneumonitis. 2. No acute infectious or inflammatory findings are identified in the abdomen or pelvis. 3. Bilateral nephrolithiasis. 4. Severe hepatic steatosis. 5. Prostatomegaly with evidence of chronic bladder outlet obstruction. 6. Colonic diverticulosis without CT evidence of acute diverticulitis. 7. Additional findings as above. ACT 112: Negative or not required by law. Electronically signed by: Justyn Patel M.D. 07/07/2022 2:02 PM Hospital Course (1) Hypotension: (2) RLL pneumonia: (3) Ear infection: (4) History of DVT (deep vein thrombosis): (5) ANGIE (acute kidney injury): (6) Persistent atrial fibrillation: (7) Hypertension: (8) Dyslipidemia: (9) Type 2 diabetes mellitus: Plan This is a 77-year-old male with PMH of type 2 diabetes, dyslipidemia, pretension, persistent atrial fibrillation and history of DVT on anticoagulation as well as recent ear infection who presents with continued cough and congestion was found to have right lower lobe pneumonia and acute kidney injury. Pneumonia Possible Community acquired pneumonia-viral vs bacterial with hypoxia Did not meet the criteria for sepsis CXR showed Stable mild cardiomegaly. Otherwise, no acute process within the chest. CT Chest showed Patchy ground glass consolidation is seen in the right lower lobe. 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 while in-patient BSG AC HS Rash Diffused rash possible related to recent abx Rash continue to fade away Continue monitor HTN Holding lisinopril/hctz given ANGIE, continue Toprol with hold parameters, felodipine HLD Continue statin DVT Ppx: coumadin Code status: FULL Disposition Will discharge once medically stable Total Time Total Time Spent Total Time Spent (In Minutes): 35 minutes Discharge Plan Discharge Items Patient Disposition: Home - Self-Care Reason For Visit: RLL PNA, ANGIE Discharge Diagnosis: (1) Hypotension: (2) RLL pneumonia: (3) Ear infection: (4) History of DVT (deep vein thrombosis): (5) ANGIE (acute kidney injury): (6) Persistent atrial fibrillation: (7) Hypertension: (8) Dyslipidemia: (9) Type 2 diabetes mellitus: Activity: Resume your previous activity Non-emergency contact: Primary Care Provider Call non-emergency contact if: you have any medication questions and your temperature is above 101 Follow-up/Referrals: Bo Adame DO [Primary Care Provider] - (Date & Time 07/15/2022 9:00 AM Provider Bo Adame DO [facility] ) Diet: Heart Healthy Addtl Attending Provider Instructions: Follow up with your primary care provider 07/15/2022 @9:00 AM Bo Adame DO [facility] Follow up with the coumadin clinic to monitor your PT/INR Complete the course of the antibiotic with Doxycycline and cefdinir Continue incentive spirometry and flutter valve Seek medical attention if your symptoms worsening Fall precaution Pending Studies at Discharge: No Stand-Alone Forms: My [facility] [place], Smoking Cessation Medications and DC Order Prescriptions: New guaifenesin 200 mg Tablet 200 mg PO Q8H PRN (Reason: cough) Qty: 21 0RF Continued warfarin 5 mg tablet 5 mg PO MOTUWEFRSA@1600 multivitamin Tablet 1 tab PO QAM ascorbic acid (vitamin C) [Vitamin C] 1,000 mg Tablet 1 g PO QAM felodipine 2.5 mg tablet extended release 24 hr 2.5 mg PO QAM atorvastatin 10 mg tablet 10 mg PO QAM lisinopril-hydrochlorothiazide 20-12.5 mg tablet 1 tab PO QAM metoprolol succinate 50 mg tablet extended release 24 hr 50 mg PO DAILY metformin 500 mg tablet extended release 24 hr 500 mg PO QAM ciprofloxacin-dexamethasone 0.3-0.1 % drops,suspension 5 drp OTR DIRECTED Rx Instructions: STARTED 07/01/22 FOR 19 DAYS. diclofenac sodium 1 % Gel 4 g TOPICAL DIRECTED PRN (Reason: Pain) Ozempic 0.25 mg or 0.5 mg(2 mg/1.5 mL) pen injector 0.25 mg SUBCUT WK Rx Instructions: TAKES ON WEDNESDAYS warfarin 5 mg tablet 2.5 mg PO SUTH@1600 Discontinued amoxicillin-pot clavulanate 875-125 mg tablet 1 tab PO BID Rx Instructions: STARTED 07/01/22 FOR 10 DAYS. Discharge Orders: Discharge Order (Routine); Ordered 07/10/22 Ordered By: Gini Baird Admission Data Admit Date/Time: 07/07/22 15:00 Attending Provider: Gini Baird Admit Provider: Sonja Lo Primary Care Provider: Bo Adame Other Providers: Sonja Lo Other Interventions: Discharge Summary Assessment (RN) Last Done: 07/10/22 13:32
== END 2022-07-10 13:57 | disposition home or self-care (01) | DRG 194 ==
LOC: ED 12:16 → EDINP 15:00 → SUATTDRO 15:00 → 2N 18:21